=== PATIENT | female | born 1960 | race Caucasian/White ===

== ENCOUNTER 2019-11-17 15:40 | Inpatient (IN) | payer OTHER, BC, SELFPAY ==
[2019-11-17] VITALS (15 sets, daily range): BP systolic 100–125; BP diastolic 68–84; PULSE 20–100; RESP 12–93; TEMP 37–37.2; O2SAT 95–99; BMI 26.9
--- NOTE | ~2019-11-17 | US_ITS ---
EXAMINATION: US venous doppler [facility] DATE: 11/22/2019 14:47 INDICATION: Lower limb swelling. TECHNIQUE: Grayscale ultrasound images without and with compression and Doppler ultrasound images of the bilateral lower extremity veins were obtained. COMPARISON: None. FINDINGS: The visualized portions of right common femoral vein, profunda (deep) femoral vein, femoral vein, pop liteal vein, posterior tibial veins, peroneal veins, gastrocnemius vein, lesser saphenous vein and gr eater saphenous vein outflow are patent. The visualized portions of left common femoral vein, profunda femoral vein, femoral vein, popliteal v ein, posterior tibial veins, peroneal veins, gastrocnemius vein, lesser saphenous vein and greater sa phenous vein outflow are patent. IMPRESSION: 1. No deep venous thrombosis in either lower limb. Reviewed, dictated and finalized at location A.
--- NOTE | ~2019-11-17 | XR_ITS ---
EXAMINATION: XR chest 1V portable 11/17/2019 17:34 INDICATION: Weakness, fever and upper back pain PROCEDURE: AP portable chest COMPARISON: 06/24/2011 FINDINGS: The lungs are clear. The cardiomediastinal silhouette is within normal limits. There are no pleural effusions. There is no pneumothorax suspected. There are partially calcified breast impl ants. IMPRESSION: 1: NO ACUTE CARDIOPULMONARY DISEASE. Reviewed, dictated and finalized at location A.
--- NOTE | ~2019-11-17 | US_ITS ---
EXAMINATION: US renal BI DATE: 11/19/2019 09:43 INDICATION: Acute kidney injury. TECHNIQUE: Multiple ultrasound grayscale images of the kidneys were obtained. COMPARISON: Chest CT 06/24/2011 FINDINGS: The right kidney measures 11.9 x 6.2 x 5.7 cm. The left kidney measures 11.9 x 4.7 x 5.9 cm. The kidn eys demonstrate normal parenchymal echogenicity. There is no hydronephrosis. The bladder is normal. IMPRESSION: 1. Normal kidneys. No hydronephrosis. Reviewed, dictated and finalized at location A.
[2019-11-17 16:22] LABS: Hematocrit 34.4 % (37.0-47.0); Hemoglobin 11.8 g/dL (12.0-15.0); Mean Corpuscular HGB Conc 34.3 g/dl (32-36); Mean Corpuscular Hemoglobin 31.4 pg (26-34); Mean Corpuscular Volume 91.5 fl (80-100); Mean Platelet Volume 10.6 fl (7.4-10.4); Platelet Count Result 256 k/mm3 (150-375); Red Blood Count 3.76 M/mm3 (4.2-5.4); White Blood Count 17.5 K/mm3 (4.5-10.0)
[2019-11-17 16:28] LABS: Band Neutrophils Percent 1 % (0-6); Lymphocytes Absolute Manual 0.87 K/mm3 (1.1-4.5); Monocytes Absolute Manual 0.87 K/mm3 (0.1-0.90); Monocytes Percent Manual 5 % (3-9); Neutrophils Absolute Manual 15.75 K/mm3 (1.7-7.2); Neutrophils Percent Manual 89 % (46-73); Platelet Estimate Adequate (Adequate); Total Cells Counted 100
[2019-11-17 16:33] LABS: Blood Urea Nitrogen 16 mg/dL (7-17); Calcium 8.1 mg/dL (8.4-10.2); Carbon Dioxide 24 mmol/L (22-30); Chloride 92 mmol/L (98-107); Estimated CRCL calculation 34 ml/min; Estimated Glomerular Filt Rate 36; Glucose 161 mg/dL (65-105); Potassium 4.1 mmol/L (3.4-5.0); Sodium 124 mmol/L (137-145)
[2019-11-17] MEDS: SODIUM CHLORIDE 0.9% IV 1,000 ML 999 ML IV CONT (16:54)
[2019-11-17] MEDS: MECLIZINE HCL 25 MG TABLET PO (17:09)
[2019-11-17 17:50] LABS: Add Urine Microscopic? YES; Appearance Urine Cloudy (Clear); Bacteria Urine Trace /hpf; Bilirubin Urine Negative (Negative); Blood Urine 2+ (Negative); Color Urine Yellow (Yellow); Glucose Urine UA Negative (Negative); Ketones Urine Negative (Negative); Leukocyte Esterase Ur 2+ LEU/UL (Negative); Mucus Urine Rare /lpf; Nitrate Urine Negative (Negative); Protein Urine 2+ mg/dL (Negative); Squamous Epithelial Cell Urine Occasional /hpf (Few); Urobilinogen Urine Negative mg/dL (<2.0); WBC Urine 31-50 /hpf
--- NOTE | 2019-11-17 18:42 | ED.GENADULT ---
HPI - General Adult General Chief complaint: Abdominal Pain Stated complaint: DON'T FEEL WELL Time Seen by Provider: 11/17/19 15:52 History of Present Illness HPI narrative: Patient is a 59-year-old female who presents ER with feeling weak. Concerned she has UTI or kidney infection. Reports dysuria began a couple days ago and fever is also started. She has been on Macrobid for 1 day. She reports earlier in the week when she started feeling fatigued her PCP swabbed her for COVID and the results are still pending. She has not had any runny nose/sore throat/productive cough. She has been without body aches. She did not start having what she felt was an elevated temperature until today. She reports she is been having some mild left-sided back pain. No alleviating factors. Related Data Home Medications Medication Instructions Recorded Confirmed nitrofurantoin monohyd/m-cryst 11/17/19 Allergies Allergy/AdvReac Type Severity Reaction Status Date / Time Sulfa (Sulfonamide Allergy Unknown Unknown Verified 09/23/17 11:04 Antibiotics) Review of Systems Review of Systems: All systems reviewed & are unremarkable except as noted in HPI and below Constitutional: Constitutional: Denies chills, Reports fatigue, Reports fever(s) and Reports weakness ENT: Denies nasal congestion and Denies sore throat Cardiovascular: Cardiovascular: Denies chest pain and Denies radiating jaw, neck or arm pain Respiratory: Respiratory: Denies cough, Denies dyspnea and Denies wheezing Gastrointestinal: Gastrointestinal: Denies abdominal pain, Denies nausea and Denies vomiting Genitourinary: Genitourinary: Reports nocturia, Reports dysuria and Reports flank pain PMFSH Past Medical History Medical History (Updated 11/17/19 @ 19:15 by Livan Emerson MD) Anxiety Healthy female adult Surgical History Surgical History (Updated 11/17/19 @ 19:02 by Livan Emerson MD) H/O breast augmentation Family History Family History (Updated 12/09/17 @ 11:35 by DOCTOR UNKNOWN) Mother Family history of schizophrenia Family history of dementia Father Family history of Parkinson's disease Other Diabetes mellitus Family history of malignant neoplasm Social History Social History Smoking status: Former smoker Second hand tobacco smoke exposure: No Smoking end date: 05/10/13 Alcohol intake: current Gender identity (if verbalized by the patient): Male Exam Narrative: Exam Narrative: GENERAL: ill-appearing, well-nourished, and in no acute distress. HEAD: Normocephalic, atraumatic. ENT: Mucous membranes moist. CHEST: Clear to auscultation. No respiratory distress. HEART: Regular rate and rhythm. Normal peripheral pulses. ABDOMEN: Soft, nontender, nondistended. No reproducible CVA tenderness EXTREMITIES: Normal range of motion. No edema. SKIN: Warm, dry, no rash. NEURO: Alert and oriented x3. PSYCH: Normal mood and affect. Course Course Emergency Course: Admit to hospitalist service for hyponatremia and UTI. Vital Signs Vital signs: Vital Signs Temperature 98.6 F 11/17/19 15:53 Pulse Rate 100 11/17/19 15:53 Respiratory Rate 12 11/17/19 15:53 Blood Pressure 120/78 11/17/19 15:53 Pulse Oximetry 98 11/17/19 15:53 Temperature 98.6 F 11/17/19 15:53 Pulse Rate 83 11/17/19 18:17 Respiratory Rate 18 11/17/19 18:17 Blood Pressure 100/84 11/17/19 18:17 Pulse Oximetry 95 11/17/19 18:17 Medical Decision Making Vital Signs Vital Signs: Vital Signs Temperature 98.6 F 11/17/19 15:53 Pulse Rate 100 11/17/19 15:53 Respiratory Rate 12 11/17/19 15:53 Blood Pressure 120/78 11/17/19 15:53 Pulse Oximetry 98 11/17/19 15:53 Temperature 98.6 F 11/17/19 15:53 Pulse Rate 83 11/17/19 18:17 Respiratory Rate 18 11/17/19 18:17 Blood Pressure 100/84 11/17/19 18:17 Pulse Oximetry 95 11/17/19 18:17 Lab Data Result diagrams: 11/17/19 16:15
--- NOTE | 2019-11-17 20:40 | ADMGEN ---
This patient, Shagufta Farias, was admitted to [facility] Room 330-01. Patient/family oriented to hospital policies and general routines including ID bracelet, bed and alarms, visiting hours, pain management, procedures, bathroom and other care routines, personal items, smoking policy, room service/diet, and visiting hours. Valuables list has been completed. Information on how to activate the Rapid Response Team has been discussed. Patient/Family are encouraged to report perceived risks to care and to ask questions if they do not understand what they are told or what they should do.
[2019-11-17] MEDS: SODIUM CHLORIDE 0.9% IV 1,000 ML 125 ML (21:56)
--- NOTE | 2019-11-17 22:40 | PM.IMHP ---
H&P: HPI History of Present Illness Chief complaint: Fever, back pain Narrative: Date and time of patient contact: 11/17/2019 at 9:20 p.m. Shagufta Farias is a 59 year old female with a distant history of urethral stricture and urinary tract infections who presented to the ER fever and mid back pain. The patient reported that on Wednesday she had a fever of of 102?. She had decreased energy and fatigue. She called her primary care physician's office and was coded tested. However when she returned home on Wednesday evening she developed left flank pain similar to when she had a prior pyelonephritis approximately 20 years ago. The following days she had a temperature up to 104.7. She developed dysuria and foul-smelling urine on Wednesday. She did not notice that her urine was darker in color until she provided a sample in the ER. She denies any hematuria. She had 1 episode of vomiting and an incontinent diarrheal stool on Wednesday. She has had persistent fevers each day. She has had marked episodes of sweating and rigors. She has had decreased oral intake. She denies any headache or visual changes. She has not had any episodes of lightheadedness. She denies cough or congestion. She has not had any shortness of breath or chest pain. She called her primary care physician's office on Wednesday and got a prescription for nitrofurantoin. Despite starting the antibiotic therapy her symptoms have continued unabated. Review of Systems Review of Systems: Narrative: 12 systems were reviewed with pertinent positives and negatives per HPI. Except as documented in the HPI, all other systems were reviewed and are negative. [facility] Past Medical History Medical History (Updated 11/17/19 @ 22:50 by Delisa Cortez DO) Anxiety Insomnia Surgical History Surgical History (Updated 11/17/19 @ 22:47 by Delisa Cortez DO) H/O breast augmentation History of dilation of urethra Family History Family History Mother Dementia Schizophrenia Father Dementia Parkinsons disease Sibling Breast cancer Social History Social History (Updated 11/17/19 @ 22:55 by Delisa Cortez DO) Smoking packs per day: 1 Smoking cigarettes per day: 20.0 Years smoked: 35 Smoking pack-years: 35.00 Smoking status: Former smoker Tobacco type: e-cigarettes/vaping Second hand tobacco smoke exposure: No Smoking end date: 05/10/13 Additional smoking assessment comments: She has transition to E cigarettes over the last 5 years. Alcohol intake: current Drinks per week: 6 Alcohol use details: She drinks a 6 pack of beer a week. Substance use: never Living arrangements: with family Additional living arrangements comments: She lives with her of 30 years. She has 1 son and 1 stepson. She reports that her son is healthy. 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 Gender identity (if verbalized by the patient): Female Spiritual care concerns: No Meds Home Medications and Allergies Home Medications Medication Instructions Recorded Confirmed Type diphenhydramine-acetaminophen 1 tablet PO HS PRN 11/17/19 11/17/19 History [Tylenol PM Extra Strength] ibuprofen 800 mg PO Q6H PRN 11/17/19 11/17/19 History nitrofurantoin monohyd/m-cryst 100 mg PO BID 11/17/19 11/17/19 History zolpidem 10 mg PO HS 11/17/19 11/17/19 History Allergies Allergy/AdvReac Type Severity Reaction Status Date / Time Sulfa (Sulfonamide Allergy Unknown Unknown Verified 09/23/17 11:04 Antibiotics) Vital Signs Vital Signs - 24 hr 11/17/19 15:53 11/17/19 16:49 11/17/19 17:00 Temperature 98.6 F Pulse Rate 100 86 85 Respiratory Rate 12 17 19 Blood Pressure 120/78 Pulse Oximetry 98 96 95 11/17/19 17:15 11/17/19 17:16 11/17/19 17:30 Temperature Pulse Rate 82 86 77
[2019-11-17 22:57] LABS: Blood Urea Nitrogen 17 mg/dL (7-17); Calcium 7.5 mg/dL (8.4-10.2); Carbon Dioxide 23 mmol/L (22-30); Chloride 97 mmol/L (98-107); Estimated CRCL calculation 36 ml/min; Estimated Glomerular Filt Rate 38; Glucose 178 mg/dL (65-105); Potassium 3.6 mmol/L (3.4-5.0); Sodium 128 mmol/L (137-145)
[2019-11-17] MEDS: ZOLPIDEM TARTRATE 5 MG TABLET 10 MG PO (23:15)
[2019-11-18] VITALS (11 sets, daily range): BP systolic 94–133; BP diastolic 51–75; PULSE 99–121; RESP 16–20; TEMP 37.2–39.5; O2SAT 92–98
[2019-11-18] MEDS: SODIUM CHLORIDE 0.9% IV 1,000 ML 125 ML IV CONT ×2 (06:08→14:43)
[2019-11-18 06:48] LABS: Hematocrit 33.3 % (37.0-47.0); Mean Corpuscular Hemoglobin 30.7 pg (26-34); Mean Platelet Volume 10.9 fl (7.4-10.4); Platelet Count Result 208 k/mm3 (150-375); Red Blood Count 3.58 M/mm3 (4.2-5.4); Red Cell Distribution Width 13.1 % (11.5-14.5); White Blood Count 10.6 K/mm3 (4.5-10.0)
[2019-11-18 06:59] LABS: Blood Urea Nitrogen 16 mg/dL (7-17); Calcium 7.4 mg/dL (8.4-10.2); Carbon Dioxide 24 mmol/L (22-30); Chloride 98 mmol/L (98-107); Estimated CRCL calculation 32 ml/min; Estimated Glomerular Filt Rate 33; Glucose 109 mg/dL (65-105); Potassium 4.3 mmol/L (3.4-5.0); Sodium 129 mmol/L (137-145)
[2019-11-18] MEDS: ACETAMINOPHEN 325 MG TABLET 650 MG PO ×3 (08:36→20:53)
[2019-11-18] MEDS: ENOXAPARIN 40 MG/0.4 ML SYRINGE SUB-Q (08:37)
--- NOTE | 2019-11-18 13:23 | P.PNIM_ITS ---
Progress Note: A&P Assessment and Plan (1) Sepsis: Code(s): A41.9 - Sepsis, unspecified organism <Jessie BurrisSophia Marquez PA-C - Last Filed: 11/18/19 16:49> Status: Acute <Jessie Boydcyndi, PA-C - Last Filed: 11/18/19 16:49> Assessment and Plan: Meets sepsis criteria with tachycardia and fever. BP soft this morning at 94/57. Source of infection is pyelonephritis with secondary bacteremia. * Administer 500 ml fluid bolus * Continue maintenance IV fluids and antibiotics * Check lactic acid level * Await final blood culture report. Urine cultures pending. * Hold benadryl, norco, and morphine given soft pressures * Closely monitor BP and vital signs <Jessie Marquez PA-C - Last Filed: 11/18/19 16:49> (2) Bacteremia: Code(s): R78.81 - Bacteremia <Jessie DaytonSophia Marquez, PA-C - Last Filed: 11/18/19 16:49> Status: Acute <Jessie DaytonSophia Marquez, PA-C - Last Filed: 11/18/19 16:49> Assessment and Plan: Secondary to pyelonephritis. * Preliminary blood culture shows Gram-negative bacilli with susceptibility report pending. * Continue ceftriaxone * Add Zosyn while awaiting susceptibility <Jessie Marquez PA-C - Last Filed: 11/18/19 16:49> (3) Pyelonephritis: Code(s): N12 - Tubulo-interstitial nephritis, not specified as acute or chronic <Jessie Marquez PA-C - Last Filed: 11/18/19 16:49> Status: Acute <Jessie DaytonSophia Marquez, PA-C - Last Filed: 11/18/19 16:49> Assessment and Plan: Urinalysis suspicious for UTI. She has bilateral CVA tenderness. She is febrile with T-max 102.6? and shaking chills. She started Macrobid prescribed by PCP on 11/14 but did not have improvement. * Continue empiric Rocephin and Zosyn * Await urine cultures * Preliminary blood cultures revealed gram-negative bacilli. Will await further report. * Continue IV fluids * Continue Tylenol as needed for fever <Jessie Marquez PA-C - Last Filed: 11/18/19 16:49> (4) Acute hyponatremia: Code(s): E87.1 - Hypo-osmolality and hyponatremia <Jessie Marquez ERICKSON - Last Filed: 11/18/19 16:49> Status: Acute <Jessie Marquez PA-C - Last Filed: 11/18/19 16:49> Assessment and Plan: Likely due to hypovolemia and secondary losses. Levels are increasing at a steady rate. * Continue IV fluids. * Continue to closely monitor sodium. Will repeat this afternoon and again this evening. <Jessie Marquez PA-C - Last Filed: 11/18/19 16:49> (5) Acute renal injury: Code(s): N17.9 - Acute kidney failure, unspecified <Jessie Marquez ERICKSON - Last Filed: 11/18/19 16:49> Status: Acute <Jessie Marquez PA-C - Last Filed: 11/18/19 16:49> Assessment and Plan: Likely due to infectious process and dehydration. Baseline creatinine is unclear. * Continue IV fluids * Renally dose medications and avoid nephrotoxic agents * Continue to monitor renal function closely. <Jessie Marquez ERICKSON - Last Filed: 11/18/19 16:49> Subjective Date/time seen: 11/18/19 13:23 <Jessie Boydcyndi ERICKSON - Last Filed: 11/18/19 16:49> Interval history: Date of service: 11/18/2019 She has fever and shaking chills. 8/10 back pain especially on right side at CVA. She denies flank pain or abdominal pain. She does not have dysuria or hematuria but endorses dark urine and urgency. She denies nausea or vomiting. She has a headache. No abdominal pain or cramping. She has had poor appetite. She denies dizzines or lightheadedness but
--- NOTE | 2019-11-18 13:23 | PM.IMPN ---
Progress Note: A&P Assessment and Plan (1) Sepsis: Code(s): A41.9 - Sepsis, unspecified organism <Jessie DaytonSophia Marquez PA-C - Last Filed: 11/18/19 16:49> Status: Acute <Jessie Solis Jimmy PA-C - Last Filed: 11/18/19 16:49> Assessment and Plan: Meets sepsis criteria with tachycardia and fever. BP soft this morning at 94/57. Source of infection is pyelonephritis with secondary bacteremia. Administer 500 ml fluid bolus Continue maintenance IV fluids and antibiotics Check lactic acid level Await final blood culture report. Urine cultures pending. Hold benadryl, norco, and morphine given soft pressures Closely monitor BP and vital signs <Jessie Marquez PA-C - Last Filed: 11/18/19 16:49> (2) Bacteremia: Code(s): R78.81 - Bacteremia <Jessie Marquez PA-C - Last Filed: 11/18/19 16:49> Status: Acute <Jessie DaytonSophia Marquez, PA-C - Last Filed: 11/18/19 16:49> Assessment and Plan: Secondary to pyelonephritis. Preliminary blood culture shows Gram-negative bacilli with susceptibility report pending. Continue ceftriaxone Add Zosyn while awaiting susceptibility <Jessie Marquez PA-C - Last Filed: 11/18/19 16:49> (3) Pyelonephritis: Code(s): N12 - Tubulo-interstitial nephritis, not specified as acute or chronic <Jessie Marquez PA-C - Last Filed: 11/18/19 16:49> Status: Acute <Jessie DaytonSophia Marquez, PA-C - Last Filed: 11/18/19 16:49> Assessment and Plan: Urinalysis suspicious for UTI. She has bilateral CVA tenderness. She is febrile with T-max 102.6? and shaking chills. She started Macrobid prescribed by PCP on 11/14 but did not have improvement. Continue empiric Rocephin and Zosyn Await urine cultures Preliminary blood cultures revealed gram-negative bacilli. Will await further report. Continue IV fluids Continue Tylenol as needed for fever <Jessie Marquez PA-C - Last Filed: 11/18/19 16:49> (4) Acute hyponatremia: Code(s): E87.1 - Hypo-osmolality and hyponatremia <Jessie Marquez PA-C - Last Filed: 11/18/19 16:49> Status: Acute <Jessie DaytonSophia Marquez PA-C - Last Filed: 11/18/19 16:49> Assessment and Plan: Likely due to hypovolemia and secondary losses. Levels are increasing at a steady rate. Continue IV fluids. Continue to closely monitor sodium. Will repeat this afternoon and again this evening. <Jessie Marquez PA-C - Last Filed: 11/18/19 16:49> (5) Acute renal injury: Code(s): N17.9 - Acute kidney failure, unspecified <Jessie Marquez PA-C - Last Filed: 11/18/19 16:49> Status: Acute <Jessie Marquez PA-C - Last Filed: 11/18/19 16:49> Assessment and Plan: Likely due to infectious process and dehydration. Baseline creatinine is unclear. Continue IV fluids Renally dose medications and avoid nephrotoxic agents Continue to monitor renal function closely. <Jessie Marquez PA-C - Last Filed: 11/18/19 16:49> Subjective Date/time seen: 11/18/19 13:23 <Jsesie Marquez PA-C - Last Filed: 11/18/19 16:49> Interval history: Date of service: 11/18/2019 She has fever and shaking chills. 8/10 back pain especially on right side at CVA. She denies flank pain or abdominal pain. She does not have dysuria or hematuria but endorses dark urine and urgency. She denies nausea or vomiting. She has a headache. No abdominal pain or cramping. She has had poor appetite. She denies dizzines or lightheadedness but says she feels weak. She denies cough, shortness of breath, or chest pain. <Jessie Marquez PA-C - Last Filed: 11/18/19 16:49> Review of Systems Review of Systems: Narrative: A 12 point review of systems was reviewed with pertinent positives and negatives as per HPI. <ERICKSON Blakely Last Filed: 11/18/19 16:49> Exam Narrative: Exam Narrative: Ms. Farias is examined
[2019-11-18 13:39] LABS: SARS-CoV-2 RNA PCR Negative
[2019-11-18 15:52] LABS: Sodium 129 mmol/L (137-145)
[2019-11-18 15:55] LABS: Lactic Acid 0.7 mmol/L (0.7-2.1)
[2019-11-18] MEDS: SODIUM CHLORIDE 0.9% IV 500 ML IV CONT (16:51)
[2019-11-18] MEDS: ZOLPIDEM TARTRATE 5 MG TABLET 10 MG PO (20:52)
[2019-11-18] MEDS: SODIUM CHLORIDE 0.9% IV 1,000 ML 150 ML IV CONT (20:55)
[2019-11-18 20:57] LABS: Sodium 131 mmol/L (137-145)
[2019-11-19] VITALS (12 sets, daily range): BP systolic 106–152; BP diastolic 65–88; PULSE 91–115; RESP 16–20; TEMP 36.7–38.6; O2SAT 91–97
[2019-11-19] MEDS: ACETAMINOPHEN 325 MG TABLET 650 MG PO ×5 (02:28→20:05)
[2019-11-19] MEDS: SODIUM CHLORIDE 0.9% IV 1,000 ML 150 ML IV CONT ×2 (03:36→17:20)
[2019-11-19 06:33] LABS: Basophils Percent Auto 0.5 % (0.2-1.2); Eosinophils Percent Auto 0.4 % (0-4.4); Hematocrit 30.7 % (37.0-47.0); Hemoglobin 10.1 g/dL (12.0-15.0); Immature Granulocyte Absolute 0.08 K/mm3 (0.00-0.031); Immature Granulocyte Percent A 1.1 % (0-0.5); Lymphocytes Absolute Auto 0.69 K/mm3 (0.9-3.2); Lymphocytes Percent Auto 9.1 % (18.3-44.2); Mean Corpuscular HGB Conc 32.9 g/dl (32-36); Mean Corpuscular Hemoglobin 30.5 pg (26-34); Mean Corpuscular Volume 92.7 fl (80-100); Monocytes Absolute Auto 0.8 K/mm3 (0.1-0.6); Monocytes Percent Auto 10.4 % (2.6-8.5); Neutrophils Percent Auto 78.5 % (45.5-73.1); Platelet Count Result 220 k/mm3 (150-375); Red Blood Count 3.31 M/mm3 (4.2-5.4); Red Cell Distribution Width 13.2 % (11.5-14.5); White Blood Count 7.6 K/mm3 (4.5-10.0)
[2019-11-19 06:51] LABS: Blood Urea Nitrogen 13 mg/dL (7-17); Carbon Dioxide 22 mmol/L (22-30); Chloride 102 mmol/L (98-107); Estimated CRCL calculation 34 ml/min; Estimated Glomerular Filt Rate 36; Glucose 94 mg/dL (65-105); Potassium 3.8 mmol/L (3.4-5.0); Sodium 131 mmol/L (137-145)
[2019-11-19] MEDS: ENOXAPARIN 40 MG/0.4 ML SYRINGE SUB-Q (08:37)
--- NOTE | 2019-11-19 15:25 | PM.IMPN ---
Progress Note: A&P Assessment and Plan (1) Sepsis: Qualifiers: Sepsis type: Escherichia coli Sepsis acute organ dysfunction status: unspecified Qualified Code(s): A41.51 - Sepsis due to Escherichia coli [E. coli] Code(s): A41.9 - Sepsis, unspecified organism Status: Acute Assessment and Plan: Meets sepsis criteria with tachycardia and fever. BP was a little soft, however this is improving. Source of infection is pyelonephritis with secondary bacteremia. Lactic acid is within normal limits. She was given 500 ml fluid bolus on 11/17 Continue maintenance IV fluids and antibiotics Urine and blood cultures positive for E coli. Hold benadryl, norco, and morphine given soft pressures Closely monitor BP and vital signs (2) Bacteremia: Code(s): R78.81 - Bacteremia Status: Acute Assessment and Plan: Secondary to pyelonephritis. Preliminary blood culture shows E coli with susceptibility report pending Continue ceftriaxone and Zosyn while awaiting susceptibility (3) Pyelonephritis: Code(s): N12 - Tubulo-interstitial nephritis, not specified as acute or chronic Status: Acute Assessment and Plan: She had bilateral CVA tenderness. She is febrile with T-max 103.1? and rigors. She started Macrobid prescribed by PCP on 11/14 but did not have improvement. Fever has been improved today. Her CVA tenderness has resolved. Continue empiric Rocephin and Zosyn. Plan to transition to single agent upon review of blood culture susceptibility. Final urine cultures demonstrate greater than 100,000 CFU E coli with susceptibility to Rocephin and Zosyn. Preliminary blood cultures revealed E coli consistent with urine culture. Susceptibility report is pending. Continue IV fluids Continue Tylenol as needed for fever (4) Acute hyponatremia: Code(s): E87.1 - Hypo-osmolality and hyponatremia Status: Acute Assessment and Plan: Likely due to hypovolemia and secondary losses. Levels are increasing at a steady rate. Stable at 131 today. Continue IV fluids. Continue to closely monitor sodium. (5) Acute renal injury: Code(s): N17.9 - Acute kidney failure, unspecified Status: Acute Assessment and Plan: Likely due to infectious process and dehydration. Baseline creatinine is unclear. Creatinine is remaining stable, however still elevated. Continue IV fluids Renally dose medications and avoid nephrotoxic agents Continue to monitor renal function closely. Suspect she will demonstrate improvement with resolution of infection. Renal ultrasound shows normal kidneys with no hydronephrosis. Subjective Date/time seen: 11/19/19 15:25 Interval history: Date of service: 11/19/2019 She reports she is feeling better than yesterday. She continues to endorse fever and chills, however she notes this seems to have improved. Her back and flank pain is resolved today. She denies abdominal pain. She feels extremely fatigued, and a little bit lightheaded. She is urinating frequently but denies dysuria or hematuria. She had a loose bowel movement today. Her appetite has been fair. Occasional nonproductive cough. No shortness of breath or chest pain. Review of Systems Review of Systems: Narrative: A 12 point review of systems was reviewed with pertinent positives and negatives as per HPI. Exam Narrative: Exam Narrative: Ms. Farias is examined today in the presence of her . She is a well nourished 59-year-old female who is lying supine in bed. She appears uncomfortable but is in no acute respiratory distress. HR 102, BP 138/88, RR 20, T 98.7?, 96% on room air Neuro: awake, alert and oriented x4, speech clear, no focal neuro deficits noted HEENMT: normocephalic, atraumatic, EOMI, sclerae anicteric, moist oral mucosa, normal oropharynx Neck: supple, no lymphadenopathy Respiratory: clear to auscultation bilaterall
[2019-11-19] MEDS: SACCHAROMYCES BOULARDII 250 MG CAPSULE PO (18:42)
[2019-11-19] MEDS: ZOLPIDEM TARTRATE 5 MG TABLET 10 MG PO (20:00)
[2019-11-20] VITALS (8 sets, daily range): BP systolic 137–146; BP diastolic 73–89; PULSE 83–109; RESP 18–20; TEMP 36.7–38.2; O2SAT 91–98
[2019-11-20] MEDS: ACETAMINOPHEN 325 MG TABLET 650 MG PO ×4 (02:12→21:31)
[2019-11-20] MEDS: SODIUM CHLORIDE 0.9% IV 1,000 ML 150 ML IV CONT (05:45)
[2019-11-20 06:30] LABS: Blood Urea Nitrogen 10 mg/dL (7-17); Calcium 7.5 mg/dL (8.4-10.2); Carbon Dioxide 20 mmol/L (22-30); Chloride 103 mmol/L (98-107); Estimated CRCL calculation 39 ml/min; Estimated Glomerular Filt Rate 42; Glucose 104 mg/dL (65-105); Potassium 3.6 mmol/L (3.4-5.0); Sodium 130 mmol/L (137-145)
[2019-11-20] MEDS: ENOXAPARIN 40 MG/0.4 ML SYRINGE SUB-Q (07:58)
[2019-11-20] MEDS: SACCHAROMYCES BOULARDII 250 MG CAPSULE PO ×2 (07:58→17:32)
--- NOTE | 2019-11-20 10:50 | P.PNIM_ITS ---
Progress Note: A&P Assessment and Plan (1) Sepsis: Qualifiers: Sepsis type: Escherichia coli Sepsis acute organ dysfunction status: unspecified Qualified Code(s): A41.51 - Sepsis due to Escherichia coli [E. col i] Code(s): A41.9 - Sepsis, unspecified organism Status: Acute Assessment and Plan: Met SIRS criteria with tachycardia and fever. BP was a little soft, however this is improving. Source of infection is pyelonephritis with secondary bacteremia. Lactic acid is within normal limits. * She was given 500 ml fluid bolus on 11/17 * Continue maintenance IV fluids and antibiotics * Urine and blood cultures positive for E coli. * Closely monitor BP and vital signs (2) Bacteremia: Code(s): R78.81 - Bacteremia Status: Acute Assessment and Plan: Secondary to pyelonephritis. * Preliminary blood culture shows E coli susceptible to ceftriaxone * Continue ceftriaxone, initiated on 11/16 * Discontinue broad spectrum Zosyn, given 11/17-11/19. (3) Pyelonephritis: Code(s): N12 - Tubulo-interstitial nephritis, not specified as acute or chronic Status: Acute Assessment and Plan: She had bilateral CVA tenderness. She is febrile with T-max 103.1? and rigors. She started Macrobid prescribed by PCP on 11/14 with no resolution. Fever has been improved but she had low fever 100.8 early am. Her CVA tenderness has resolved. * Final urine cultures demonstrate greater than 100,000 CFU E coli with susceptibility to ceftriaxone * Preliminary blood cultures revealed E coli consistent with urine culture, also susceptible to ceftriaxone. * Continue IV fluids, will decrease to 100 ml/hr * Continue Tylenol as needed for fever (4) Acute hyponatremia: Code(s): E87.1 - Hypo-osmolality and hyponatremia Status: Acute Assessment and Plan: Likely due to hypovolemia and secondary losses. Levels are increasing at a stea dy rate. Stable at 130 today. * Continue IV fluids. * Continue to closely monitor sodium. (5) Acute renal injury: Code(s): N17.9 - Acute kidney failure, unspecified Status: Acute Assessment and Plan: Likely due to infectious process and dehydration. Baseline creatinine is unclear. Creatinine improved to 1.3 today. * Continue IV fluids * Renally dose medications and avoid nephrotoxic agents * Continue to monitor renal function closely. Suspect she will demonstrate improvement with resolution of infection. * Renal ultrasound shows normal kidneys with no hydronephrosis. (6) Diarrhea: Code(s): R19.7 - Diarrhea, unspecified Status: Acute Assessment and Plan: Complained of loose stool on 11/19/19. Today, she reports frequent watery, malodorous stools. No associated abdominal cramping or pain. No N/V. * Continue probiotic * Check stool culture and C. diff toxin Subjective Date/time seen: 11/20/19 10:50 Interval history: Date of service: 11/20/2019 Her headache has improved today. She had an episode of chills last night but denies any subjective fever or chills today. She complains of feeling very weak and lacking any energy. She is able to ambulate independently without difficulty. She has not had any nausea or vomiting. She complained of loose stool yesterday but today tells me her stool is watery and malodorous and she is having frequent episodes of diarrhea. She has no abdominal pain, bloating, or cramping. Still denies dysuria or hematuria. Back pain has resolved. No shortness of breath or chest pain.
--- NOTE | 2019-11-20 10:50 | PM.IMPN ---
Progress Note: A&P Assessment and Plan (1) Sepsis: Qualifiers: Sepsis type: Escherichia coli Sepsis acute organ dysfunction status: unspecified Qualified Code(s): A41.51 - Sepsis due to Escherichia coli [E. coli] Code(s): A41.9 - Sepsis, unspecified organism Status: Acute Assessment and Plan: Met SIRS criteria with tachycardia and fever. BP was a little soft, however this is improving. Source of infection is pyelonephritis with secondary bacteremia. Lactic acid is within normal limits. She was given 500 ml fluid bolus on 11/17 Continue maintenance IV fluids and antibiotics Urine and blood cultures positive for E coli. Closely monitor BP and vital signs (2) Bacteremia: Code(s): R78.81 - Bacteremia Status: Acute Assessment and Plan: Secondary to pyelonephritis. Preliminary blood culture shows E coli susceptible to ceftriaxone Continue ceftriaxone, initiated on 11/16 Discontinue broad spectrum Zosyn, given 11/17-11/19. (3) Pyelonephritis: Code(s): N12 - Tubulo-interstitial nephritis, not specified as acute or chronic Status: Acute Assessment and Plan: She had bilateral CVA tenderness. She is febrile with T-max 103.1? and rigors. She started Macrobid prescribed by PCP on 11/14 with no resolution. Fever has been improved but she had low fever 100.8 early am. Her CVA tenderness has resolved. Final urine cultures demonstrate greater than 100,000 CFU E coli with susceptibility to ceftriaxone Preliminary blood cultures revealed E coli consistent with urine culture, also susceptible to ceftriaxone. Continue IV fluids, will decrease to 100 ml/hr Continue Tylenol as needed for fever (4) Acute hyponatremia: Code(s): E87.1 - Hypo-osmolality and hyponatremia Status: Acute Assessment and Plan: Likely due to hypovolemia and secondary losses. Levels are increasing at a steady rate. Stable at 130 today. Continue IV fluids. Continue to closely monitor sodium. (5) Acute renal injury: Code(s): N17.9 - Acute kidney failure, unspecified Status: Acute Assessment and Plan: Likely due to infectious process and dehydration. Baseline creatinine is unclear. Creatinine improved to 1.3 today. Continue IV fluids Renally dose medications and avoid nephrotoxic agents Continue to monitor renal function closely. Suspect she will demonstrate improvement with resolution of infection. Renal ultrasound shows normal kidneys with no hydronephrosis. (6) Diarrhea: Code(s): R19.7 - Diarrhea, unspecified Status: Acute Assessment and Plan: Complained of loose stool on 11/19/19. Today, she reports frequent watery, malodorous stools. No associated abdominal cramping or pain. No N/V. Continue probiotic Check stool culture and C. diff toxin Subjective Date/time seen: 11/20/19 10:50 Interval history: Date of service: 11/20/2019 Her headache has improved today. She had an episode of chills last night but denies any subjective fever or chills today. She complains of feeling very weak and lacking any energy. She is able to ambulate independently without difficulty. She has not had any nausea or vomiting. She complained of loose stool yesterday but today tells me her stool is watery and malodorous and she is having frequent episodes of diarrhea. She has no abdominal pain, bloating, or cramping. Still denies dysuria or hematuria. Back pain has resolved. No shortness of breath or chest pain. She has intermittent dry cough. Her appetite is still poor but she is eating her meals. Review of Systems Review of Systems: Narrative: A 12 point review of systems was reviewed with pertinent positives and negatives as per HPI. Exam Narrative: Exam Narrative: Ms. Farias is examined today in the presence of her sister. She is a well nourished 59-year-old female who is lying supine in bed. She appears co
[2019-11-20] MEDS: SODIUM CHLORIDE 0.9% IV 1,000 ML 100 ML IV CONT (17:24)
[2019-11-20] MEDS: ZOLPIDEM TARTRATE 5 MG TABLET 10 MG PO (21:32)
[2019-11-21] MEDS: SODIUM CHLORIDE 0.9% IV 1,000 ML 100 ML IV CONT (03:32)
[2019-11-21 06:00] VITALS: BP 154/83; PULSE 89; RESP 18; TEMP 38.1; O2SAT 95
[2019-11-21 06:22] LABS: Hematocrit 28.9 % (37.0-47.0); Hemoglobin 9.6 g/dL (12.0-15.0); Mean Corpuscular HGB Conc 33.2 g/dl (32-36); Mean Corpuscular Hemoglobin 30.2 pg (26-34); Mean Corpuscular Volume 90.9 fl (80-100); Mean Platelet Volume 10.8 fl (7.4-10.4); Platelet Count Result 349 k/mm3 (150-375); Red Blood Count 3.18 M/mm3 (4.2-5.4); Red Cell Distribution Width 13.8 % (11.5-14.5); White Blood Count 9.6 K/mm3 (4.5-10.0)
[2019-11-21 06:40] LABS: Blood Urea Nitrogen 8 mg/dL (7-17); Calcium 7.5 mg/dL (8.4-10.2); Carbon Dioxide 21 mmol/L (22-30); Chloride 105 mmol/L (98-107); Estimated CRCL calculation 46 ml/min; Estimated Glomerular Filt Rate 51; Glucose 110 mg/dL (65-105); Potassium 3.6 mmol/L (3.4-5.0); Sodium 133 mmol/L (137-145)
[2019-11-21 08:00] VITALS: TEMP 36.9
[2019-11-21] MEDS: ACETAMINOPHEN 325 MG TABLET 650 MG PO ×2 (08:24→14:29)
[2019-11-21] MEDS: ENOXAPARIN 40 MG/0.4 ML SYRINGE SUB-Q (08:40)
[2019-11-21] MEDS: SACCHAROMYCES BOULARDII 250 MG CAPSULE PO ×2 (08:40→17:53)
--- NOTE | 2019-11-21 12:58 | PM.IMPN ---
Progress Note: A&P Assessment and Plan (1) Sepsis: Qualifiers: Sepsis type: Escherichia coli Sepsis acute organ dysfunction status: unspecified Qualified Code(s): A41.51 - Sepsis due to Escherichia coli [E. coli] Code(s): A41.9 - Sepsis, unspecified organism Status: Acute Assessment and Plan: Met SIRS criteria with tachycardia and fever. She had soft BP initially which has improved. The source of infection is pyelonephritis complicated by urosepsis due to E. coli, present on blood and urine cultures. Lactic acid is within normal limits. Continue to treat with IV antibiotics. Continue to monitor. (2) Bacteremia: Code(s): R78.81 - Bacteremia Status: Acute Assessment and Plan: Secondary to pyelonephritis complicated by urosepsis. Final blood cultures reveal E coli susceptible to ceftriaxone. She was given broad spectrum zosyn 11/17-11/19. Ceftriaxone was resumed 11/20 after sensitivity results were available. Continue ceftriaxone which was initiated on 11/16. (3) Pyelonephritis: Code(s): N12 - Tubulo-interstitial nephritis, not specified as acute or chronic Status: Acute Assessment and Plan: She had bilateral CVA tenderness at [facility] with T-max 103.1? and rigors. She was prescribed Macrobid by PCP on 11/14 without improvement in her symptoms. Fever has been improved but she had low fever 100.6F at 6:00 AM. Her CVA tenderness has resolved. Final urine cultures demonstrate greater than 100,000 CFU E coli with susceptibility to ceftriaxone. Final blood cultures revealed E coli consistent with urine culture, also susceptible to ceftriaxone. Plan to discontinue IV fluids today as she is tolerating PO intake well and notes mild swelling in her feet. Continue Tylenol as needed for fever. (4) Acute hyponatremia: Code(s): E87.1 - Hypo-osmolality and hyponatremia Status: Acute Assessment and Plan: Likely due to hypovolemia and secondary losses. Levels are increasing at a steady rate. Stable is 133 today. Continue monitor sodium. (5) Acute renal injury: Code(s): N17.9 - Acute kidney failure, unspecified Status: Acute Assessment and Plan: Likely due to infectious process and dehydration. Baseline creatinine is unclear. Renal ultrasound demonstrated normal kidneys with no hydronephrosis. Creatinine improved to 1.1 today. She is tolerating PO intake well so I will discontinue IV fluids as she feels that her feet are becoming swollen. Renally dose medications and avoid nephrotoxic agents. Continue to monitor. (6) Diarrhea: Code(s): R19.7 - Diarrhea, unspecified Status: Acute Assessment and Plan: Complained of loose stool on 11/19/19. She reported incresed frequency of watery and malodorous stools without associated abdominal cramping or pain. C. diff testing was negative. Plan to continue probiotic. Additional stool cultures are pending. Await additional stool cultures. Subjective Date/time seen: 11/21/19 12:58 Interval history: Mrs. Farias is a 59 y.o. female who is seen and examined at bedside in follow-up for urosepsis. She did not sleep well overnight and states that she feels tired. She is eager to go home because she does not sleep well here. She reports a fever earlier today but denies subjective fever or chills at this time. She reports that she is having loose stools but this is not uncommon for her to have periodically. She reports 3-4 yesterday. She notes that overall, she feels better than she did at presentation. She reports slight flank discomfort which continues to improve. She notes poor appetite but is able to keep down food and ate doughnuts today. She denies nausea and vomiting. She has no urinary complaints today. She denies chest pain and dyspnea. She reports that her feet appear swollen. She denies calf pain. Review of Systems Review of Systems: All systems reviewed & ar
[2019-11-21 14:00] VITALS: BP 132/86; PULSE 84; RESP 16; TEMP 36.8; O2SAT 99
[2019-11-21] MEDS: ZOLPIDEM TARTRATE 5 MG TABLET 10 MG PO (20:22)
[2019-11-21 22:00] VITALS: BP 127/56; PULSE 92; RESP 18; TEMP 36.6; O2SAT 97
[2019-11-22 05:28] VITALS: BP 146/78; PULSE 83; RESP 18; TEMP 36.8; O2SAT 96
[2019-11-22 06:29] LABS: Basophils Percent Auto 0.4 % (0.2-1.2); Eosinophils Absolute Auto 0.1 K/mm3 (0-0.3); Hematocrit 25.8 % (37.0-47.0); Hemoglobin 8.7 g/dL (12.0-15.0); Immature Granulocyte Absolute 0.21 K/mm3 (0.00-0.031); Immature Granulocyte Percent A 2.3 % (0-0.5); Lymphocytes Absolute Auto 1.42 K/mm3 (0.9-3.2); Lymphocytes Percent Auto 15.4 % (18.3-44.2); Mean Corpuscular HGB Conc 33.7 g/dl (32-36); Mean Corpuscular Hemoglobin 30.3 pg (26-34); Mean Corpuscular Volume 89.9 fl (80-100); Mean Platelet Volume 10.5 fl (7.4-10.4); Monocytes Percent Auto 10.7 % (2.6-8.5); Neutrophils Absolute Auto 6.5 K/mm3 (1.3-6.7); Neutrophils Percent Auto 70.2 % (45.5-73.1); Platelet Count Result 393 k/mm3 (150-375); Red Blood Count 2.87 M/mm3 (4.2-5.4); Red Cell Distribution Width 13.5 % (11.5-14.5); White Blood Count 9.2 K/mm3 (4.5-10.0)
[2019-11-22 06:39] LABS: Blood Urea Nitrogen 6 mg/dL (7-17); Calcium 7.6 mg/dL (8.4-10.2); Carbon Dioxide 21 mmol/L (22-30); Chloride 104 mmol/L (98-107); Estimated CRCL calculation 55 ml/min; Estimated Glomerular Filt Rate > 60; Glucose 104 mg/dL (65-105); Potassium 3.5 mmol/L (3.4-5.0); Sodium 133 mmol/L (137-145)
[2019-11-22] MEDS: SACCHAROMYCES BOULARDII 250 MG CAPSULE PO (08:31)
[2019-11-22] MEDS: ENOXAPARIN 40 MG/0.4 ML SYRINGE SUB-Q (08:32)
--- NOTE | 2019-11-22 13:32 | PM.DS ---
DS: Admitting Diagnosis Admitting Diagnosis Admitting Diagnosis: Tubulo-interstitial nephritis, not specified as acute or chronic DS: Discharge Diagnosis Discharge Diagnosis (1) Sepsis: Qualifiers: Sepsis acute organ dysfunction status: unspecified Sepsis type: Escherichia coli Qualified Code(s): A41.51 - Sepsis due to Escherichia coli [E. coli] Code(s): A41.9 - Sepsis, unspecified organism Status: Acute (2) Bacteremia: Code(s): R78.81 - Bacteremia Status: Acute (3) Pyelonephritis: Code(s): N12 - Tubulo-interstitial nephritis, not specified as acute or chronic Status: Acute (4) Acute hyponatremia: Code(s): E87.1 - Hypo-osmolality and hyponatremia Status: Acute (5) Acute renal injury: Code(s): N17.9 - Acute kidney failure, unspecified Status: Resolved (6) Diarrhea: Code(s): R19.7 - Diarrhea, unspecified Status: Acute DS: Summary Hospital Course Reason for hospitalization: Abdominal pain Hospital Course: Mrs. Farias is a 59 y.o. female with PMH significant for prior urinary tract infections, anxiety, and insomnia who presented to the emergency department for the evaluation of weakness, abdominal pain, fatigue, fever of 104.7F, dysuria, foul smelling and dark urine, vomiting, diarrhea, and mild left-sided back pain. She was tested for COVID-19 by her PCP due to c/o rhinorrhea, sore throat, and productive cough and she was prescribed nitrofurantoin outpatient without improvement. Initial workup in the emergency department revealed WBC 17,500 with a neutrophil predominance, Hb 11.8, Hct 34.4, platelets 256, sodium 124, potassium 4.1, chloride 92, CO2 24, BUN 16, Cr 1.5, urine suspicious for UTI, and CXR without evidence of acute abnormality. She was treated with empiric ceftriaxone in the ED. She met SIRS criteria with suspected source pyelonephritis. Lactic acid was normal. Blood and urine cultures revealed gram-negative bacilli. IV zosyn was added for broader coverage. Final cultures revealed E. Coli sensitive to ceftriaxone so zosyn was discontinued. She had loose stools so she was tested for C. diff as well as E. coli shiga toxin, campylobacter, and salmonella/shigella which were negative. She was treated with a probiotic. She had BLACK initially which improved with IV fluids and treatment of her UTI. She complained of mild lower extremity swelling bilaterally so I ordered venous doppler which was negative. She was hyponatremic initially and this improved with IV fluid rehydration. She was feeling much better and requested to go home. She was discharged on PO cefdinir in stable condition on the afternoon of 11/22/19. She was advised to have labs repeated in 5 days. She understood the plan of care. Status at Discharge Functional status at discharge: independent ambulation Overall status at discharge: patient is back to baseline Time Spent with Patient Time attestation: Total time spent providing and/or coordinating discharge services:35 minutes Exam Narrative: Exam Narrative: Vitals at presentation: Temp Pulse Resp BP Pulse Ox 98.6 F 100 12 120/78 98 11/17/19 15:53 11/17/19 15:53 11/17/19 15:53 11/17/19 15:53 11/17/19 15:53 Vitals at discharge: Temp Pulse Resp BP Pulse Ox 99.3 F 77 18 152/99 H 96 11/22/19 14:00 11/22/19 14:00 11/22/19 14:00 11/22/19 14:00 11/22/19 14:00 General: Very pleasant 59 y.o. female sitting in the semi-castillo's position in bed in no acute distress. HEENT: Normocephalic and atraumatic. Sclerae anicteric. EOMI. Moist mucous membranes. Neck: Supple without lymphadenopathy or masses. Cardiac: Regular rate and rhythm. S1 and S2 normal. Lung
[2019-11-22 14:00] VITALS: BP 152/99; PULSE 77; RESP 18; TEMP 37.4; O2SAT 96
[2019-11-22] MEDS: diphenhydrAMINE HCl CAP 25 MG CAPSULE PO (14:13)
== END 2019-11-22 17:47 | disposition home or self-care (01) | DRG 872 ==
LOC: ANHED 19:17 → ANH3MEDSUR 19:47
PROVIDERS: Physician Assistant; Admitting Provider Internal Medicine; Emergency Provider Emergency Medicine; PCP Family Medicine Sports Medicine; Visit Provider Physician Assistant
DX: A41.51 Sepsis due to Escherichia coli [E. coli] (principal); N10 Acute pyelonephritis; E87.1 Hypo-osmolality and hyponatremia; N17.9 Acute kidney failure, unspecified; Z20.828 Contact with and (suspected) exposure to other viral communicable diseases; R19.7 Diarrhea, unspecified; F41.9 Anxiety disorder, unspecified
CPT/HCPCS: 36415; 71045; 76775; 80048; 81001; 83605; 83735; 84295; 85025; 85027; 87040; 87045; 87046; 87077; 87086; 87088; 87186; 87324; 87427; 87635; 93970; 96361; 96365; 96366; 96367; 96372; 99285; A9270; C9803; G0378; J0696; J1650; J2543; J7030; J7040; U0003

== ENCOUNTER 2019-11-28 10:26 | Outpatient (CLI) | payer OTHER, BC, SELFPAY ==
[2019-11-28 10:42] LABS: Hematocrit 34.8 % (37.0-47.0); Hemoglobin 11.2 g/dL (12.0-15.0); Mean Corpuscular HGB Conc 32.2 g/dl (32-36); Mean Corpuscular Hemoglobin 30.8 pg (26-34); Mean Corpuscular Volume 95.6 fl (80-100); Platelet Count Result 889 k/mm3 (150-375); Red Blood Count 3.64 M/mm3 (4.2-5.4); Red Cell Distribution Width 13.6 % (11.5-14.5); White Blood Count 11.3 K/mm3 (4.5-10.0)
[2019-11-28 10:58] LABS: Blood Urea Nitrogen 15 mg/dL (7-17); Carbon Dioxide 26 mmol/L (22-30); Chloride 97 mmol/L (98-107); Estimated Glomerular Filt Rate 51; Glucose 99 mg/dL (65-105); Potassium 4.7 mmol/L (3.4-5.0); Sodium 133 mmol/L (137-145)
== END 2019-11-28 10:27 | disposition home or self-care (01) ==
LOC: ANHLAB 10:27
PROVIDERS: PCP Family Medicine Sports Medicine; Visit Provider Physician Assistant
DX: E87.1 Hypo-osmolality and hyponatremia (principal); N17.9 Acute kidney failure, unspecified; N12 Tubulo-interstitial nephritis, not specified as acute or chronic
CPT/HCPCS: 36415; 80048; 85027

== ENCOUNTER 2019-12-19 18:09 | Emergency (ER) | payer OTHER, SELFPAY ==
--- NOTE | ~2019-12-19 | CT_ITS ---
EXAMINATION: CT abdomen pelvis wo con EXAM DATE: 12/19/2019 19:46 INDICATION: Fever and back pain. TECHNIQUE: Spiral CT of the abdomen and pelvis was performed without contrast. Axial, coronal and s agittal images were reviewed. The dose-length product (DLP) for this examination was 430.26 mGy-cm. The exposure was tailored according to patient size (auto mA exposure control), and iterative recons truction (ASIR) was used as additional dose reduction technique. There is no prior study for compari son. FINDINGS: Bilateral patchy peripheral predominant groundglass opacities Appearance is typical of ear ly stage COVID 19-induced acute lung injury. Less likely acute possibilities include influenza, pulm onary edema or hemorrhage. Some chronic processes that can have this appearance include cryptogenic o rganizing pneumonia, desquamative interstitial pneumonia, nonspecific interstitial pneumonia, drug to xicity, connective tissue disease. Please clinically correlate and test as appropriate. There is left adrenal gland adenoma measuring 1.3 cm. The liver, spleen, adrenal glands and pancreas are otherwise unremarkable. Gallbladder is unremarkable. No biliary obstruction. There is no nephr olithiasis or hydronephrosis. The uterus is unremarkable. The bladder is unremarkable. There is no retroperitoneal or pelvic lymphadenopathy. There is mild to moderate scattered arteriosclerotic disease. The appendix is normal. The stomach and small bowel are unremarkable. There is mild to moderate scat tered colonic diverticulosis. There is no adjacent inflammatory change to suggest diverticulitis. N o free intraperitoneal gas. The heart is normal in size. There are no pericardial or pleural effus ions. There are no osteoblastic or osteolytic lesions identified. IMPRESSION: 1. Patchy bilateral airspace disease suspicious for COVID-19 pneumonia. Clinical correlation. 2. Left adrenal adenoma. 3. No acute intra-abdominal findings. Reviewed, dictated and finalized at location A. IMPRESSION: 1. Patchy bilateral airspace disease suspicious for COVID-19 pneumonia. Clinic al correlation. 2. Left adrenal adenoma. 3. No acute intra-abdominal findings.
[2019-12-19 18:14] VITALS: BP 136/82; PULSE 100; RESP 20; TEMP 38.5; O2SAT 98
--- NOTE | 2019-12-19 18:54 | ED.FEVER ---
HPI - Fever General Chief Complaint: Fever <ERICKSON Kline Last Filed: 12/19/19 21:54> Stated Complaint: fever, low back pain <ERICKSON Kline Last Filed: 12/19/19 21:54> Time Seen by Provider: 12/19/19 18:30 <ERICKSON Kline Last Filed: 12/19/19 21:54> Source: patient <ERICKSON Kline Last Filed: 12/19/19 21:54> Mode of arrival: ambulatory <ERICKSON Kline Last Filed: 12/19/19 21:54> Limitations: no limitations <ERICKSON Kline Last Filed: 12/19/19 21:54> History of Present Illness HPI Narrative: This is a 59-year-old female that presents to the emergency department for low back pain x4 days. Also reports mild dysuria and fevers. Reports a cough that is chronic for her. Denies congestion, shortness of breath, sore throat, abdominal pain, vomiting, hematuria. <ERICKSON Kline Last Filed: 12/19/19 21:54> Related Data Home Medications: Home Medications Medication Instructions Recorded Confirmed diphenhydramine-acetaminophen 1 tablet PO HS PRN 11/17/19 11/17/19 [Tylenol PM Extra Strength] ibuprofen 800 mg PO Q6H PRN 11/17/19 11/17/19 zolpidem 10 mg PO HS 11/17/19 11/17/19 <ERICKSON Kline Last Filed: 12/19/19 21:54> Allergies/Adverse Reactions: Allergies Allergy/AdvReac Type Severity Reaction Status Date / Time Sulfa (Sulfonamide Allergy Unknown Unknown Verified 12/19/19 18:17 Antibiotics) <ERICKSON Kline Last Filed: 12/19/19 21:54> Review of Systems Review of Systems: Narrative: CONSTITUTIONAL: Reports fever, chills RESPIRATORY: Denies cough or dyspnea. GASTROINTESTINAL: Denies abdominal pain, nausea, vomiting GENITOURINARY: Reports dysuria. Denies hematuria. MUSCULOSKELETAL: Reports back pain <Nereida Johnson PA-C - Last Filed: 12/19/19 21:54> All systems reviewed & are unremarkable except as noted in HPI and below <Nereida Johnson PA-C - Last Filed: 12/19/19 21:54> PMFSH Past Medical History Medical History: Medical History (Updated 12/19/19 @ 21:47 by Nereida Johnson PA-C) Anxiety Insomnia <Nereida Johnson PA-C - Last Filed: 12/19/19 21:54> Surgical History Surgical History: Surgical History (Updated 11/17/19 @ 22:47 by Delisa Cortez DO) H/O breast augmentation History of dilation of urethra <Nereida Johnson PA-C - Last Filed: 12/19/19 21:54> Social History Social History: Social History (Updated 11/17/19 @ 22:55 by Delisa Cortez DO) Smoking packs per day: 1 Smoking cigarettes per day: 20.0 Years smoked: 35 Smoking pack-years: 35.00 Smoking status: Former smoker Tobacco type: e-cigarettes/vaping Second hand tobacco smoke exposure: No Smoking end date: 05/10/13 Additional smoking assessment comments: She has transition to E cigarettes over the last 5 years. Alcohol intake: current Drinks per week: 6 Substance use: never Additional living arrangements comments: She lives with her of 30 years. She has 1 son and 1 stepson. She reports that her son is healthy. 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 Gender identity (if verbalized by the patient): Female Spiritual care concerns: No <Nereida Johnson PA-C - Last Filed: 12/19/19 21:54> Exam Narrative: Exam Narrative: GENERAL: Well-appearing, well-nourished, and in no acute distress. HEAD: Normocephalic, atraumatic. EYES: EOMI. CHEST: Clear to auscultation. No respiratory distress. No wheezes rales or rhonchi HEART: Regular rate and rhythm. No murmur heard. Normal peripheral pulses. ABDOMEN: Soft, nontender, nondistended, normal active bowel sounds. EXTREMITIES: Normal range of motion. No edema. SKIN: Warm, dry, no rash. NEURO: No focal deficits. Alert and oriented x3. PSYCH: Normal mood and affect <Nereida Johnson PA-C - Last Filed: 12/19/19 21:54> Course Vital Signs
[2019-12-19] MEDS: SODIUM CHLORIDE 0.9% IV 1,000 ML 999 ML IV CONT (18:55)
[2019-12-19 18:58] LABS: Basophils Percent Auto 0.3 % (0.2-1.2); Eosinophils Percent Auto 0.3 % (0-4.4); Hematocrit 32.3 % (37.0-47.0); Hemoglobin 10.9 g/dL (12.0-15.0); Immature Granulocyte Absolute 0.02 K/mm3 (0.00-0.031); Immature Granulocyte Percent A 0.6 % (0-0.5); Lymphocytes Absolute Auto 1.55 K/mm3 (0.9-3.2); Lymphocytes Percent Auto 42.7 % (18.3-44.2); Mean Corpuscular HGB Conc 33.7 g/dl (32-36); Mean Corpuscular Hemoglobin 30.1 pg (26-34); Mean Corpuscular Volume 89.2 fl (80-100); Mean Platelet Volume 10.1 fl (7.4-10.4); Monocytes Absolute Auto 0.3 K/mm3 (0.1-0.6); Monocytes Percent Auto 9.4 % (2.6-8.5); Neutrophils Absolute Auto 1.7 K/mm3 (1.3-6.7); Neutrophils Percent Auto 46.7 % (45.5-73.1); Platelet Count Result 196 k/mm3 (150-375); Red Blood Count 3.62 M/mm3 (4.2-5.4); Red Cell Distribution Width 12.8 % (11.5-14.5); White Blood Count 3.6 K/mm3 (4.5-10.0)
[2019-12-19 19:03] LABS: Add Urine Microscopic? YES; Appearance Urine Clear (Clear); Bilirubin Urine Negative (Negative); Blood Urine 1+ (Negative); Color Urine Straw (Yellow); Glucose Urine UA Negative (Negative); Ketones Urine Negative (Negative); Leukocyte Esterase Ur Trace LEU/UL (Negative); Mucus Urine Rare /lpf; Nitrate Urine Negative (Negative); Protein Urine Negative (Negative); RBC Urine 0-2 /hpf (0-2); Specific Grav Ur 1.009 (1.001-1.035); Squamous Epithelial Cell Urine Occasional /hpf (Few); Urobilinogen Urine Negative mg/dL (<2.0); WBC Urine 0-3 /hpf
[2019-12-19 19:11] LABS: Lactic Acid Reflex 0.6 mmol/L (0.7-2.1)
[2019-12-19 19:13] LABS: Alanine Aminotransferase 30 U/L (4-35); Alkaline Phosphatase 115 U/L (38-126); Anion Gap 11 mmol/L (8-16); Aspartate Amino Transferase 47 U/L (14-36); Bilirubin,Total 0.4 mg/dL (0.2-1.3); Blood Urea Nitrogen 13 mg/dL (7-17); CRP 2.4 mg/dL (<1.0); Calcium 7.9 mg/dL (8.4-10.2); Carbon Dioxide 21 mmol/L (22-30); Chloride 96 mmol/L (98-107); Estimated CRCL calculation 46 ml/min; Estimated Glomerular Filt Rate 51; Glucose 110 mg/dL (65-105); Potassium 3.9 mmol/L (3.4-5.0); Sodium 128 mmol/L (137-145)
[2019-12-19 19:16] LABS: INR 0.9; Prothrombin Time 11.8 Seconds (11.1-14.7)
[2019-12-19 19:17] LABS: Partial Thromboplastin Time 34.1 SECONDS (22.3-36.8)
[2019-12-19 19:48] VITALS: BP 125/89; PULSE 85; RESP 16; TEMP 37.8; O2SAT 99
[2019-12-19 21:39] VITALS: BP 129/78; PULSE 77; RESP 14; TEMP 37.4; O2SAT 98
[2019-12-19 22:22] VITALS: BP 145/69; PULSE 84; RESP 14; TEMP 37.7; O2SAT 100
[2019-12-20 14:11] LABS: SARS-CoV-2 RNA PCR Positive
== END 2019-12-19 22:24 | disposition home or self-care (01) ==
PROVIDERS: Emergency Medicine; Physician Assistant; Emergency Provider General Practice; PCP Family Medicine Sports Medicine
DX: U07.1 COVID-19 (principal); J12.89 Other viral pneumonia; G47.00 Insomnia, unspecified; F17.290 Nicotine dependence, other tobacco product, uncomplicated
CPT/HCPCS: 36415; 74176; 80053; 81001; 83605; 85025; 85610; 85730; 86140; 87040; 87635; 96365; 96367; 96375; 99284; C9803; J0131; J0456; J0696; J7030; U0003

== ENCOUNTER 2019-12-28 15:51 | Inpatient (IN) | payer OTHER, SELFPAY ==
[2019-12-28] VITALS (9 sets, daily range): BP systolic 93–118; BP diastolic 63–81; PULSE 91–103; RESP 18–31; TEMP 36.9–37; O2SAT 90–94; BMI 24.8
--- NOTE | ~2019-12-28 | XR_ITS ---
EXAMINATION: XR chest 1V portable DATE: 12/28/2019 16:43 INDICATION: Shortness of breath, fatigue. COVID 19 positive TECHNIQUE: frontal view of the chest was obtained. COMPARISON: Chest radiograph dated 11/17/2019 FINDINGS: Subtle groundglass and reticular opacities in the bilateral lower lung zones. No pleural effusion or pneumothorax. The cardiomediastinal silhouette is normal. Peripheral calcification at bilateral breas t implants. Sclerotic lesion projecting over the right humeral head which is without correlate on CT from 06/24/2011. IMPRESSION: 1. Subtle lung disease in the bilateral lower lung zones which could represent pneumonia, pulmonary e yeison or chronic interstitial lung disease. 2. New sclerotic lesion projecting over the right humeral head with differential including bone islan d, this body or sclerotic metastasis if there is history of prior malignancy. Correlate with planned chest CT and if suspicion for metastasis remains would consider bone scan for further evaluation. Reviewed, dictated and finalized at location A. IMPRESSION: 1. Subtle lung disease in the bilateral lower lung zones which could represent pneumonia, pulmonary edema or chronic interstitial lung disease. 2. New sclerotic lesion projecting over the right humeral head with differentia l including bone island, this body or sclerotic metastasis if there is history of prior malignancy. Correlate with planned chest CT and if suspicion for metas tasis remains would consider bone scan for further evaluation.
--- NOTE | ~2019-12-28 | CT_ITS ---
EXAMINATION: CTA chest PE protocol DATE: 12/28/2019 17:30 INDICATION: Shortness of breath. Elevated d-dimer. TECHNIQUE: Computed tomography (CT) pulmonary angiogram of the chest was performed with 100 mL Omnipa que-350 intravenous contrast. Additional 3D reconstructions utilizing coronal maximum intensity proje ction (MIP) were performed. Automated exposure control and iterative reconstruction technique were em ployed. The dose-length product was 276.15 mGy-cm. COMPARISON: Chest CT dated 06/24/[address] abdomen and pelvis dated 12/19/2019 FINDINGS: Excellent contrast opacification of the pulmonary arteries. There is mild streak artifact from dense contrast in the superior vena cava and right atrium. Minimal scattered respiratory motion artifact wh ich does not significantly limit evaluation. No pulmonary embolism. Mild to moderate emphysema. Inter nicolas progression of peripheral and lower lung predominant groundglass opacities throughout both lungs with the appearance, distribution and relatively rapid progression most consistent with COVID 19 pneu monia or less likely pulmonary edema. No pleural effusion. Heart size is normal. Thoracic aorta is no rmal in caliber with no dissection. No pathologically enlarged gastric lymphadenopathy. Peripherally calcified bilateral breast implants. New small sclerotic lesion at the right humeral head. No other s uspicious lytic or blastic bone lesions. Chronic mild T8 compression fracture. IMPRESSION: 1. No pulmonary embolism. 2. Interval progression of bilateral peripheral and lower lung predominant lung disease most likely C OVID 19 pneumonia or less likely pulmonary edema.. 3. New small sclerotic bone lesion at the right humeral head most likely representing a bone island. If patient has had prior history of malignancy would consider bone scan for further evaluation. Reviewed, dictated and finalized at location A. IMPRESSION: 1. No pulmonary embolism. 2. Interval progression of bilateral peripheral and lower lung predominant lung disease most likely COVID 19 pneumonia or less likely pulmonary edema.. 3. New small sclerotic bone lesion at the right humeral head most likely repres enting a bone island. If patient has had prior history of malignancy would cons ider bone scan for further evaluation.
--- NOTE | ~2019-12-28 | XR_ITS ---
EXAMINATION: XR chest 1V portable EXAM DATE: 01/01/2020 06:55 INDICATION: COVID 19. TECHNIQUE: Portable AP frontal chest x-ray was obtained. Comparison is made to prior examination from 12/28/2019. FINDINGS: There is moderate amount of patchy bibasilar acute airspace disease probably acute lung inj ury from COVID 19 given the history provided. Edema also possible. Progression in these findings comp ared to 12/27. Cardiomediastinal silhouette is normal. There is no pneumothorax suspected. Right humer al bone island. Breast implants with peripheral calcification, capsular retraction. IMPRESSION: Some progression in acute bilateral indistinct reticulation, bibasilar airspace disease. Reviewed, dictated and finalized at location B. IMPRESSION: Some progression in acute bilateral indistinct reticulation, bibas ilar airspace disease.
--- NOTE | 2019-12-28 16:13 | ED.SOB ---
HPI - SOB/Dyspnea General Chief Complaint: Shortness of Breath/Dyspnea Stated Complaint: covid symptoms Time Seen by Provider: 12/28/19 16:04 Source: patient Mode of arrival: ambulatory Limitations: no limitations History of Present Illness HPI Narrative: This patient is a 59 year old female who presents for evaluation of worsening shortness of breath with COVID 19. Elena reports 10 days ago she started feeling ill and she was found to have covid 19. She has been having sob with minimal activity for the past week. She also reports weakness with decreased appetite. She has been taking Augmentin and azithromycin for 10 days for pneumonia. She denies chest pain, or abdominal pain . She has been having diarrhea after starting antibiotics. She reports a temperature at home of 100.4, and she took tylenol before coming to ER. MD elicited complaint: shortness of breath Related Data Home Medications Medication Instructions Recorded Confirmed zolpidem 10 mg PO HS 11/17/19 12/28/19 Allergies Allergy/AdvReac Type Severity Reaction Status Date / Time Sulfa (Sulfonamide Allergy Unknown Unknown Verified 12/28/19 16:00 Antibiotics) Review of Systems Review of Systems: All systems reviewed & are unremarkable except as noted in HPI and below Constitutional: Constitutional: Reports fatigue and Reports fever(s) Cardiovascular: Cardiovascular: Denies chest pain Respiratory: Respiratory: Reports cough and Reports dyspnea Gastrointestinal: Gastrointestinal: Denies abdominal pain, Reports diarrhea, Reports nausea and Denies vomiting Neurologic: Reports weakness PMFSH Past Medical History Medical History (Updated 12/28/19 @ 22:11 by Candelaria Glez MD) Anxiety Insomnia Pyelonephritis with E coli bacteremia November 20, 2019 Surgical History Surgical History H/O breast augmentation History of dilation of urethra Social History Social History (Updated 11/17/19 @ 22:55 by Delisa Cortez DO) Smoking packs per day: 1 Smoking cigarettes per day: 20.0 Years smoked: 35 Smoking pack-years: 35.00 Smoking status: Former smoker Tobacco type: cigarettes and e-cigarettes/vaping Second hand tobacco smoke exposure: No Smoking end date: 12/19/19 Additional smoking assessment comments: Has stopped using E-cigs 12/19/2019.Quit cigarettes 2014 to e-cigs. Alcohol intake: current Drinks per week: 2 Substance use: never Additional living arrangements comments: She lives with her of 30 years. She has 1 son and 1 stepson. She reports that her son is healthy. 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 Gender identity (if verbalized by the patient): Female Spiritual care concerns: No Exam Narrative: Exam Narrative: GENERAL:, well-nourished, and in no acute distress. HEAD: Normocephalic, atraumatic EYES: PERRLA and EOMI, conjunctiva clear without discharge EARS: TM's clear bilaterally without erythema or dullness NOSE: Nares clear, no rhinorrhea or epistaxis THROAT:Mucous membranes moist, Oropharynx normal without erythema, exudate, peritonsillar swelling or fluctuance NECK: Supple, without lymphadenopathy or mass RESPIRATORY: No respiratory distress, Airway patent, Respirations non-labored, Clear to auscultation without rales, rhonchi or wheeze HEART: Regular rate and rhythm. No murmur heard. Normal peripheral pulses. ABDOMEN: Soft, nontender, nondistended, normal active bowel sounds. No masses. No rebound or guarding, No organomegaly. EXTREMITIES: No edema, normal strength with full range of motion. SKIN: Warm, dry, normal color without rash NEURO: Alert and oriented x3. CN 2-12 grossly intact. No focal deficits. PSYCH: Normal mood and affect. Course Course Emergency Course: PAtient presented with worsening sob. Her oxygen saturation goes 90-92% on room ai
[2019-12-28] MEDS: SODIUM CHLORIDE 0.9% IV 1,000 ML 999 ML IV CONT (16:23)
[2019-12-28 16:28] LABS: Basophils Percent Auto 0.2 % (0.2-1.2); Hematocrit 30.4 % (37.0-47.0); Hemoglobin 10.3 g/dL (12.0-15.0); Immature Granulocyte Absolute 0.03 K/mm3 (0.00-0.031); Immature Granulocyte Percent A 0.7 % (0-0.5); Lymphocytes Absolute Auto 1.09 K/mm3 (0.9-3.2); Lymphocytes Percent Auto 24.2 % (18.3-44.2); Mean Corpuscular HGB Conc 33.9 g/dl (32-36); Mean Corpuscular Hemoglobin 28.9 pg (26-34); Mean Corpuscular Volume 85.4 fl (80-100); Mean Platelet Volume 10.6 fl (7.4-10.4); Monocytes Absolute Auto 0.2 K/mm3 (0.1-0.6); Monocytes Percent Auto 4.2 % (2.6-8.5); Neutrophils Absolute Auto 3.2 K/mm3 (1.3-6.7); Neutrophils Percent Auto 70.7 % (45.5-73.1); Platelet Count Result 377 k/mm3 (150-375); Red Blood Count 3.56 M/mm3 (4.2-5.4); Red Cell Distribution Width 12.9 % (11.5-14.5); White Blood Count 4.5 K/mm3 (4.5-10.0)
[2019-12-28 16:38] LABS: Prothrombin Time 12.8 Seconds (11.1-14.7)
[2019-12-28 16:38] LABS: Alveolar/Arterial O2 Gradient 57.4 mmHg; Base Excess ABG -1.9 mEq/l (+/-2.0); Fractional Inspired Oxygen 21 %; HCO3 ABG 21.2 mEq/l (22.0-26.0); Oxygen Saturation ABG 91.1 % (95.0-100.0); Oxyhemoglobin 89.7 % THb (90.0-100.0); PCO2 ABG 30.4 mmHg (35.0-45.0); PO2 ABG 55.9 mmHg (80.0-100.0); PO2 FiO2 Ratio Arterial Blood 2.66 %; Total Hemoglobin 10.3 g/dL (12.0-18.0); pH ABG 7.461 (7.350-7.450)
[2019-12-28 16:39] LABS: Partial Thromboplastin Time 44.5 SECONDS (22.3-36.8)
[2019-12-28 16:39] LABS: Device ROOM AIR; Modified Allen's Test Pass; Site Drawn LEFT RADIAL
[2019-12-28 16:40] LABS: Lactic Acid Reflex 1.2 mmol/L (0.7-2.1)
[2019-12-28 16:41] LABS: D Dimer 1.92 ug/mL (<0.48)
[2019-12-28 16:43] LABS: Lactate Dehydrogenase 1084 U/L (313-618)
[2019-12-28 16:44] LABS: Atypical Lymphocytes Present; Ovalocytes 1+ (NORMAL)
[2019-12-28 16:58] LABS: Alanine Aminotransferase 44 U/L (4-35); Albumin Level 3.6 g/dL (3.5-5.1); Alkaline Phosphatase 250 U/L (38-126); Anion Gap 11 mmol/L (8-16); Aspartate Amino Transferase 61 U/L (14-36); Bilirubin,Total 0.5 mg/dL (0.2-1.3); Blood Urea Nitrogen 12 mg/dL (7-17); Carbon Dioxide 23 mmol/L (22-30); Chloride 93 mmol/L (98-107); Estimated CRCL calculation 50 ml/min; Estimated Glomerular Filt Rate 57; Glucose 140 mg/dL (65-105); Magnesium 2.1 mg/dL (1.6-2.3); Potassium 3.5 mmol/L (3.4-5.0); Sodium 127 mmol/L (137-145)
[2019-12-28] MEDS: SODIUM CHLORIDE 0.9% IV 1,000 ML 125 ML IV CONT (20:12)
--- NOTE | 2019-12-28 20:31 | PM.IMHP ---
H&P: HPI History of Present Illness Date/Time: 12/28/19 21:00 Chief complaint: COVID postive, Increased shortness of breath Narrative: Shagufta Farias is a 59 year old female with a past medical history of recent hospitalization in November for E coli bacteremia due to pyelonephritis, and COVID-19 infection 12/19/2019 who presented to the ER due to increased shortness of breath was found to have COVID-19 associated pneumonia. Patient reports that her symptoms started on 12/18/2019. She has been having increased dry cough. Short of breath at rest with worsening of symptoms with activity. She has had generalized weakness and has had decreased appetite. She has been trying to stay hydrated by drinking Gatorade. Her is frustrated with her because she is not eating. She has not had any nausea or vomiting. She denies any diarrhea or changes in bowel habits. She has noticed decreased sense of taste. She denies loss of sense of smell. She has not had any chest pain or palpitations. She has noticed being more unsteady on her feet and lightheaded with standing. She had been discharged on antibiotic therapy with Augmentin and azithromycin when her CT on 03/2020 demonstrated pneumonia consistent with COVID-19. Her T-max at home was 100.4 but her temperature when she arrived to the ER was 101.3 despite taking Tylenol prior to coming to the ER. she had not had any known COVID-19 exposures. She is working from home. She has not had any recent ill contacts. She has not had any further dysuria, flank pain or congestion. She is having intermittent frontal headache. Her headache is currently moderate in intensity and is usually relieved after taking Tylenol. Review of Systems Review of Systems: Narrative: 12 systems were reviewed with pertinent positives and negatives per HPI. Except as documented in the HPI, all other systems were reviewed and are negative. [facility] Past Medical History Medical History (Updated 12/28/19 @ 23:02 by Delisa Cortez DO) Anxiety Insomnia Pyelonephritis with E coli bacteremia November 17, 2019 Surgical History Surgical History H/O breast augmentation History of dilation of urethra Social History Social History Smoking packs per day: 1 Smoking cigarettes per day: 20.0 Years smoked: 35 Smoking pack-years: 35.00 Smoking status: Former smoker Tobacco type: cigarettes and e-cigarettes/vaping Second hand tobacco smoke exposure: No Smoking end date: 12/19/19 Additional smoking assessment comments: Has stopped using E-cigs 12/19/2019.Quit cigarettes 2015 to e-cigs. Alcohol intake: current Drinks per week: 2 Substance use: never Additional living arrangements comments: She lives with her of 30 years. She has 1 son and 1 stepson. She reports that her son is healthy. 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 Gender identity (if verbalized by the patient): Female Spiritual care concerns: No Meds Home Medications and Allergies Home Medications Medication Instructions Recorded Confirmed Type zolpidem 10 mg PO HS 11/17/19 12/28/19 History Allergies Allergy/AdvReac Type Severity Reaction Status Date / Time Sulfa (Sulfonamide Allergy Unknown Unknown Verified 12/28/19 16:00 Antibiotics) Vital Signs Vital Signs - 24 hr 12/28/19 15:53 12/28/19 16:02 12/28/19 16:30 Temperature 98.6 F Pulse Rate 103 H 102 H 97 Respiratory Rate 18 31 H 23 H Blood Pressure 108/63 100/66 93/72 L Pulse Oximetry 92 93 92 12/28/19 17:01 12/28/19 17:18 12/28/19 18:07 Temperature Pulse Rate 97 91 94 Respiratory Rate 25 H 18 20 Blood Pressure 104/81 109/75 113/72 Pulse Oximetry 94 12/28/19 18:31 12/28/19 19:00 Temperature Pulse Rate 97 93 Respiratory Rate 27 H 27 H Blood Pressure
--- NOTE | 2019-12-28 20:56 | ADMGEN ---
This patient, Shagufta Farias, was admitted to [facility] Surg Room 327-01. Patient/family oriented to hospital policies and general routines including ID bracelet, bed and alarms, visiting hours, pain management, procedures, bathroom and other care routines, personal items, smoking policy, room service/diet, and visiting hours. Valuables list has been completed. Information on how to activate the Rapid Response Team has been discussed. Patient/Family are encouraged to report perceived risks to care and to ask questions if they do not understand what they are told or what they should do.
[2019-12-29] VITALS (7 sets, daily range): BP systolic 94–121; BP diastolic 67–72; PULSE 81–114; RESP 18–22; TEMP 36.4–37.2; O2SAT 87–97
[2019-12-29] MEDS: ZOLPIDEM TARTRATE 5 MG TABLET 10 MG PO ×2 (00:17→21:27)
[2019-12-29] MEDS: SODIUM CHLORIDE 0.9% IV 1,000 ML 125 ML IV CONT ×2 (05:54→08:07)
[2019-12-29 06:11] LABS: Hematocrit 25.9 % (37.0-47.0); Hemoglobin 8.8 g/dL (12.0-15.0); Immature Granulocyte Absolute 0.02 K/mm3 (0.00-0.031); Immature Granulocyte Percent A 1.1 % (0-0.5); Lymphocytes Absolute Auto 0.49 K/mm3 (0.9-3.2); Lymphocytes Percent Auto 25.8 % (18.3-44.2); Mean Corpuscular Hemoglobin 29.3 pg (26-34); Mean Corpuscular Volume 86.3 fl (80-100); Mean Platelet Volume 10.1 fl (7.4-10.4); Monocytes Absolute Auto 0.1 K/mm3 (0.1-0.6); Monocytes Percent Auto 3.7 % (2.6-8.5); Neutrophils Absolute Auto 1.3 K/mm3 (1.3-6.7); Neutrophils Percent Auto 69.4 % (45.5-73.1); Platelet Count Result 364 k/mm3 (150-375)
[2019-12-29 06:30] LABS: Alanine Aminotransferase 33 U/L (4-35); Albumin Level 3.1 g/dL (3.5-5.1); Alkaline Phosphatase 197 U/L (38-126); Anion Gap 6 mmol/L (8-16); Aspartate Amino Transferase 40 U/L (14-36); Bilirubin,Total 0.4 mg/dL (0.2-1.3); Blood Urea Nitrogen 7 mg/dL (7-17); Calcium 7.5 mg/dL (8.4-10.2); Carbon Dioxide 24 mmol/L (22-30); Chloride 99 mmol/L (98-107); Estimated CRCL calculation 70 ml/min; Estimated Glomerular Filt Rate > 60; Glucose 138 mg/dL (65-105); Potassium 3.8 mmol/L (3.4-5.0); Sodium 129 mmol/L (137-145)
[2019-12-29 06:43] LABS: White Blood Count 1.9 K/mm3 (4.5-10.0)
[2019-12-29] MEDS: ENOXAPARIN 40 MG/0.4 ML SYRINGE SUB-Q (08:07)
[2019-12-29] MEDS: ACETAMINOPHEN 325 MG TABLET 650 MG PO ×2 (08:14→21:29)
--- NOTE | 2019-12-29 14:01 | PCPTNOTE ---
Attempted PT eval. Pt refused therapy, states she just worked with OT and is too tired to do any more today. Will try again at tomorrow.
--- NOTE | 2019-12-29 16:45 | PM.IMPN ---
Progress Note: A&P Assessment and Plan (1) Pneumonia due to COVID-19 virus: Code(s): U07.1 - COVID-19; J12.89 - Other viral pneumonia Status: Acute Assessment and Plan: -----continue dexamethasone and oxygen supplementation. Wean oxygen as tolerated. The patient is feeling much better so we will continue with this treatment. The patient still looks hypovolemic and has dry mucous membranes so I am going to continue IV fluids but hopefully these can be stopped tomorrow morning. Inflammatory markers elevated as well as her liver function test. She also has leukopenia which is likely due to viral illness. Will monitor. (2) Acute hyponatremia: Code(s): E87.1 - Hypo-osmolality and hyponatremia Status: Acute Assessment and Plan: -----improved with IV fluids to 129. She still looks dehydrated so I will continue with these as stated above. Time Spent With Patient Time with patient: 25 - 35 minutes Subjective Date/time seen: 12/29/19 16:45 Interval history: Pt is a 59-year-old female here for COVID pneumonia. Patient was seen today and states she is feeling better since hospitalized with oxygen. She is still having a dry cough but does not feel short of breath at rest. She feels very weak and is on day 11 of her COVID-19 symptoms. Today is the 1st day that she is eaten most of her meal. She has CP when she breaths deeply. She still feels dehydrated and has a dry mouth. Review of Systems Review of Systems: All systems reviewed & are unremarkable except as noted in HPI and below Exam Narrative: Exam Narrative: General: Well developed well nourished patient resting in bed in NAD HEENT: normocephalic, dry mucus membranes Neck: supple Neuro: Alert and oriented x4 CV:RRR Resp:CTA Abd: Soft, non distended. No pain to palpation. Positive bowel sounds Extremities: No swelling, erythema, or pain to palpation. Objective Data Vital Signs Vital Signs: Vital Signs - 24 hr 12/28/19 17:01 12/28/19 17:18 12/28/19 18:07 Temperature Pulse Rate 97 91 94 Respiratory Rate 25 H 18 20 Blood Pressure 104/81 109/75 113/72 Pulse Oximetry 94 12/28/19 18:31 12/28/19 19:00 12/28/19 19:45 Temperature 98.5 F Pulse Rate 97 93 99 Respiratory Rate 27 H 27 H 20 Blood Pressure 117/78 118/74 112/71 Pulse Oximetry 90 92 91 12/29/19 00:00 12/29/19 04:00 12/29/19 08:00 Temperature 98.7 F 98.4 F 98.2 F Pulse Rate 94 93 91 Respiratory Rate 22 H 22 H 22 H Blood Pressure 111/70 116/70 116/71 Pulse Oximetry 87 L 91 93 12/29/19 12:00 12/29/19 14:00 12/29/19 16:00 Temperature 99.0 F 97.7 F 97.5 F L Pulse Rate 114 H 81 97 Respiratory Rate 18 18 20 Blood Pressure 121/72 115/67 94/67 L Pulse Oximetry 97 93 95 Intake/Output Intake/Output: Intake & Output 12/26/19 12/27/19 12/28/19 12/29/19 23:59 23:59 23:59 23:59 Intake Total 1000 2640 Output Total 450 Balance 1000 2190 Meds/Results Medications: Active Medications Generic Name Dose Route Start Last Admin Trade Name Freq PRN Reason Stop Dose Admin Acetaminophen 650 mg 12/28/19 23:07 12/29/19 08:14 Tylenol Tablet PO 650 mg Q4H PRN Administration Mild Pain (1-3) or Fever Dexamethasone Sodium Phosphate 6 mg 12/28/19 20:40 12/29/19 08:06 Decadron 10 Mg/Ml Inj IV PUSH 01/06/20 09:01 6 mg DAILY ZOHRA Administration Enoxaparin Sodium 40 mg 12/29/19 09:00 12/29/19 08:07 Lovenox SUB-Q 40 mg DAILY ZOHRA Administration Sodium Chloride 1,000 mls @ 80 mls/hr 12/28/19 18:20 12/29/19 11:42 Normal Saline Iv IV CONT 80 mls/hr .[id number] ZOHRA Infusion Ondansetron HCl 4 mg 12/28/19 18:16 Zofran Inj IV PUSH Q4H PRN Nausea Zolpidem Tartrate 10 mg 12/28/19 23:00 12/29/19 00:17 Ambien PO 10 mg HS ZOHRA Administration Radiology Results: ITS Impressions Chest X-Ray 12/28/19 16:53 IMPRESSION: 1. Subtle lung disease in the bilateral lower lung zones wh
[2019-12-29] MEDS: SODIUM CHLORIDE 0.9% IV 1,000 ML 80 ML IV CONT (18:58)
[2019-12-30] VITALS (7 sets, daily range): BP systolic 95–131; BP diastolic 57–84; PULSE 81–100; RESP 16–22; TEMP 36.4–36.8; O2SAT 91–98
[2019-12-30] MEDS: SODIUM CHLORIDE 0.9% IV 1,000 ML 80 ML IV CONT ×2 (05:30→21:22)
[2019-12-30 06:31] LABS: Hematocrit 25.1 % (37.0-47.0); Hemoglobin 8.5 g/dL (12.0-15.0); Mean Corpuscular HGB Conc 33.9 g/dl (32-36); Mean Corpuscular Hemoglobin 29.3 pg (26-34); Mean Corpuscular Volume 86.6 fl (80-100); Platelet Count Result 454 k/mm3 (150-375); Red Cell Distribution Width 12.8 % (11.5-14.5); White Blood Count 5.4 K/mm3 (4.5-10.0)
[2019-12-30 06:48] LABS: D Dimer 0.85 ug/mL (<0.48)
[2019-12-30 06:58] LABS: Alanine Aminotransferase 31 U/L (4-35); Albumin Level 2.9 g/dL (3.5-5.1); Alkaline Phosphatase 170 U/L (38-126); Anion Gap 6 mmol/L (8-16); Aspartate Amino Transferase 42 U/L (14-36); Bilirubin,Total 0.2 mg/dL (0.2-1.3); Blood Urea Nitrogen 7 mg/dL (7-17); CRP 5.9 mg/dL (<1.0); Calcium 7.8 mg/dL (8.4-10.2); Carbon Dioxide 23 mmol/L (22-30); Chloride 104 mmol/L (98-107); Estimated CRCL calculation 70 ml/min; Estimated Glomerular Filt Rate > 60; Glucose 138 mg/dL (65-105); Magnesium 2.1 mg/dL (1.6-2.3); Phosphorus 2.1 mg/dL (2.5-4.5); Potassium 3.5 mmol/L (3.4-5.0); Sodium 133 mmol/L (137-145)
[2019-12-30] MEDS: POTASSIUM PHOS,M-BASIC-D-BASIC 20 MMOL in SODIUM CHLORIDE 0.9% IV 250 ML 64 MMOL IVPB (08:47)
[2019-12-30] MEDS: ENOXAPARIN 40 MG/0.4 ML SYRINGE SUB-Q (08:47)
[2019-12-30] MEDS: ACETAMINOPHEN 325 MG TABLET 650 MG PO ×2 (13:45→21:22)
--- NOTE | 2019-12-30 16:43 | PM.IMPN ---
Progress Note: A&P Assessment and Plan (1) Pneumonia due to COVID-19 virus: Code(s): U07.1 - COVID-19; J12.89 - Other viral pneumonia Status: Acute Assessment and Plan: -----continue dexamethasone and oxygen supplementation. Wean oxygen as tolerated. The patient is feeling much better so we will continue with this treatment. The patient still looks hypovolemic and has dry mucous membranes with a low bp so I am going to continue IV fluids but hopefully these can be stopped tomorrow. Inflammatory markers improved. She also had leukopenia which is likely due to viral illness. Will monitor. (2) Acute hyponatremia: Code(s): E87.1 - Hypo-osmolality and hyponatremia Status: Acute Assessment and Plan: -----improved with IV fluids to 133. She still looks dehydrated so I will continue with these as stated above. (3) Bone island: Code(s): M89.8X9 - Other specified disorders of bone, unspecified site Status: Acute Assessment and Plan: -----CTA showed new sclerotic bone lesion at the right humeral head likely bone island. No current malignancy known. She should follow-up with routine screening. Subjective Date/time seen: 12/30/19 16:43 Interval history: Pt is a 59-year-old female here for COVID pneumonia. Patient was seen today and states she is feeling better than she was on admission but still not feeling great. She had a lot of trouble walking to and from the bathroom with shortness of breath and it caused her to have some anxiety. She does not have any shortness of breath at rest. She still has coughing fits every once in a while and has significant stabbing chest pain when this happens. She is still eating and drinking better than when she was admitted. She has not had any diarrhea or constipation. Exam Narrative: Exam Narrative: General: Well developed well nourished patient resting in bed in NAD HEENT: normocephalic, dry mucus membranes Neck: supple Neuro: Alert and oriented x4 CV:RRR Resp:CTA Abd: Soft, non distended. No pain to palpation. Positive bowel sounds Extremities: No swelling, erythema, or pain to palpation. Objective Data Vital Signs Vital Signs: Vital Signs - 24 hr 12/29/19 20:00 12/30/19 00:00 12/30/19 04:00 Temperature 97.8 F 98.3 F 98.1 F Pulse Rate 94 88 86 Respiratory Rate 20 20 18 Blood Pressure 121/67 118/78 130/65 Pulse Oximetry 93 98 94 12/30/19 08:00 12/30/19 10:04 12/30/19 12:00 Temperature 97.7 F 97.9 F Pulse Rate 91 94 Respiratory Rate 22 H 22 H Blood Pressure 129/77 95/57 L Pulse Oximetry 93 93 94 12/30/19 16:00 Temperature 97.5 F L Pulse Rate 100 Respiratory Rate 22 H Blood Pressure 99/66 L Pulse Oximetry 95 Intake/Output Intake/Output: Intake & Output 12/27/19 12/28/19 12/29/19 12/30/19 23:59 23:59 23:59 23:59 Intake Total 1000 5490 1880 Output Total 450 1000 Balance 1000 5040 880 Meds/Results Medications: Active Medications Generic Name Dose Route Start Last Admin Trade Name Freq PRN Reason Stop Dose Admin Acetaminophen 650 mg 12/28/19 23:07 12/30/19 13:45 Tylenol Tablet PO 650 mg Q4H PRN Administration Mild Pain (1-3) or Fever Dexamethasone Sodium Phosphate 6 mg 12/28/19 20:40 12/30/19 08:47 Decadron 10 Mg/Ml Inj IV PUSH 01/06/20 09:01 6 mg DAILY ZOHRA Administration Enoxaparin Sodium 40 mg 12/29/19 09:00 12/30/19 08:47 Lovenox SUB-Q 40 mg DAILY ZOHRA Administration Sodium Chloride 1,000 mls @ 80 mls/hr 12/28/19 18:20 12/30/19 05:30 Normal Saline Iv IV CONT 80 mls/hr .[id number] ZOHRA Administration Ondansetron HCl 4 mg 12/28/19 18:16 Zofran Inj IV PUSH Q4H PRN Nausea Zolpidem Tartrate 10 mg 12/28/19 23:00 12/29/19 21:27 Ambien PO 10 mg HS ZOHRA Administration Radiology Results: ITS Impressions Chest X-Ray 12/28/19 16:53 IMPRESSION: 1. Subtle lung disease in the bilateral lower lung zo
[2019-12-30] MEDS: ZOLPIDEM TARTRATE 5 MG TABLET 10 MG PO (21:22)
[2019-12-31] VITALS (7 sets, daily range): BP systolic 108–149; BP diastolic 56–83; PULSE 66–77; RESP 16–20; TEMP 36.4–36.7; O2SAT 91–97
[2019-12-31 06:34] LABS: Hematocrit 24.5 % (37.0-47.0); Hemoglobin 8.2 g/dL (12.0-15.0); Mean Corpuscular HGB Conc 33.5 g/dl (32-36); Mean Corpuscular Hemoglobin 28.9 pg (26-34); Mean Corpuscular Volume 86.3 fl (80-100); Platelet Count Result 494 k/mm3 (150-375); Red Blood Count 2.84 M/mm3 (4.2-5.4); Red Cell Distribution Width 12.8 % (11.5-14.5); White Blood Count 6.9 K/mm3 (4.5-10.0)
[2019-12-31 06:46] LABS: Anion Gap 5 mmol/L (8-16); Blood Urea Nitrogen 8 mg/dL (7-17); Calcium 7.6 mg/dL (8.4-10.2); Carbon Dioxide 25 mmol/L (22-30); Chloride 103 mmol/L (98-107); Estimated CRCL calculation 80 ml/min; Estimated Glomerular Filt Rate > 60; Glucose 116 mg/dL (65-105); Potassium 3.3 mmol/L (3.4-5.0); Sodium 133 mmol/L (137-145)
[2019-12-31] MEDS: ENOXAPARIN 40 MG/0.4 ML SYRINGE SUB-Q (08:04)
[2019-12-31] MEDS: POTASSIUM CHLORIDE 20 MEQ TABLET PO (08:15)
--- NOTE | 2019-12-31 14:19 | PM.IMPN ---
Progress Note: A&P Assessment and Plan (1) Pneumonia due to COVID-19 virus: Code(s): U07.1 - COVID-19; J12.89 - Other viral pneumonia Status: Acute Assessment and Plan: -----continue dexamethasone and oxygen supplementation. Wean oxygen as tolerated. The patient is feeling much better but still has significant MURRAY. No PE on CTA. The patient still looks euvolemic and IV fluids have been stopped. Will recheck inflammatory labs and CXR tomorrow. (2) Acute hyponatremia: Code(s): E87.1 - Hypo-osmolality and hyponatremia Status: Acute Assessment and Plan: -----improved with IV fluids to 133. continue oral hydration (3) Bone island: Code(s): M89.8X9 - Other specified disorders of bone, unspecified site Status: Acute Assessment and Plan: -----CTA showed new sclerotic bone lesion at the right humeral head likely bone island. No current malignancy known. She should follow-up with routine screening. Subjective Date/time seen: 12/31/19 14:19 Interval history: Pt is a 59-year-old female here for COVID pneumonia. Patient was seen today And states she is still feeling short of breath with exertion. she was able to get up and take a shower today but had to sit down during it and had to go slower. Her cough has improved but is still there. She is eating and drinking well. She denies chest pain fevers, chills, abdominal pain, nausea, vomiting, or leg swelling. Exam Narrative: Exam Narrative: General: Well developed well nourished patient resting in bed in [facility] HEENT: normocephalic, moist mucus membranes Neck: supple Neuro: Alert and oriented x4 CV:RRR Resp:CTA Abd: Soft, non distended. No pain to palpation. Positive bowel sounds Extremities: No swelling, erythema, or pain to palpation. Objective Data Vital Signs Vital Signs: Vital Signs - 24 hr 12/30/19 16:00 12/30/19 20:00 12/31/19 00:00 Temperature 97.5 F L 98.3 F 98.1 F Pulse Rate 100 81 77 Respiratory Rate 22 H 16 16 Blood Pressure 99/66 L 131/84 129/80 Pulse Oximetry 95 95 95 12/31/19 04:00 12/31/19 08:00 12/31/19 12:00 Temperature 97.8 F 97.6 F 97.7 F Pulse Rate 68 66 75 Respiratory Rate 20 18 20 Blood Pressure 147/83 H 149/82 H 113/69 Pulse Oximetry 97 92 96 12/31/19 14:09 Temperature Pulse Rate Respiratory Rate Blood Pressure Pulse Oximetry 93 Intake/Output Intake/Output: Intake & Output 12/28/19 12/29/19 12/30/19 12/31/19 23:59 23:59 23:59 23:59 Intake Total 1000 5490 3720 540 Output Total 450 1650 Balance 1000 5040 2070 540 Meds/Results Medications: Active Medications Generic Name Dose Route Start Last Admin Trade Name Freq PRN Reason Stop Dose Admin Acetaminophen 650 mg 12/28/19 23:07 12/30/19 21:22 Tylenol Tablet PO 650 mg Q4H PRN Administration Mild Pain (1-3) or Fever Dexamethasone Sodium Phosphate 6 mg 12/28/19 20:40 12/31/19 08:03 Decadron 10 Mg/Ml Inj IV PUSH 01/06/20 09:01 6 mg DAILY ZOHRA Administration Enoxaparin Sodium 40 mg 12/29/19 09:00 12/31/19 08:04 Lovenox SUB-Q 40 mg DAILY ZOHRA Administration Ondansetron HCl 4 mg 12/28/19 18:16 Zofran Inj IV PUSH Q4H PRN Nausea Zolpidem Tartrate 10 mg 12/28/19 23:00 12/30/19 21:22 Ambien PO 10 mg HS ZOHRA Administration Radiology Results: ITS Impressions Chest X-Ray 12/28/19 16:53 IMPRESSION: 1. Subtle lung disease in the bilateral lower lung zones which could represent pneumonia, pulmonary edema or chronic interstitial lung disease. 2. New sclerotic lesion projecting over the right humeral head with differential including bone island, this body or sclerotic metastasis if there is history of prior malignancy. Correlate with planned chest CT and if suspicion for metastasis remains would consider bone scan for further evaluation. Chest CTA 12/28/19 17:46 IMPRESSION: 1. No pulmonary embolism. 2. Interval progression of js
[2019-12-31] MEDS: ACETAMINOPHEN 325 MG TABLET 650 MG PO (14:23)
[2019-12-31] MEDS: ZOLPIDEM TARTRATE 5 MG TABLET 10 MG PO (21:58)
[2020-01-01] VITALS (10 sets, daily range): BP systolic 106–150; BP diastolic 64–79; PULSE 65–129; RESP 16–20; TEMP 36.4–36.5; O2SAT 87–94
[2020-01-01] MEDS: ACETAMINOPHEN 325 MG TABLET 650 MG PO (00:16)
[2020-01-01 06:50] LABS: Hematocrit 26.5 % (37.0-47.0); Mean Corpuscular Hemoglobin 29.2 pg (26-34); Platelet Count Result 603 k/mm3 (150-375); Red Blood Count 3.08 M/mm3 (4.2-5.4); Red Cell Distribution Width 12.9 % (11.5-14.5); White Blood Count 9.6 K/mm3 (4.5-10.0)
[2020-01-01 07:14] LABS: Alanine Aminotransferase 44 U/L (4-35); Albumin Level 2.9 g/dL (3.5-5.1); Alkaline Phosphatase 126 U/L (38-126); Anion Gap 6 mmol/L (8-16); Aspartate Amino Transferase 38 U/L (14-36); Bilirubin,Total 0.3 mg/dL (0.2-1.3); Blood Urea Nitrogen 11 mg/dL (7-17); CRP 1.9 mg/dL (<1.0); Calcium 7.9 mg/dL (8.4-10.2); Carbon Dioxide 26 mmol/L (22-30); Chloride 101 mmol/L (98-107); Estimated CRCL calculation 70 ml/min; Estimated Glomerular Filt Rate > 60; Glucose 97 mg/dL (65-105); Lactate Dehydrogenase 565 U/L (313-618); Phosphorus 2.9 mg/dL (2.5-4.5); Potassium 3.5 mmol/L (3.4-5.0); Sodium 133 mmol/L (137-145)
[2020-01-01 07:25] LABS: D Dimer 0.94 ug/mL (<0.48)
[2020-01-01] MEDS: ENOXAPARIN 40 MG/0.4 ML SYRINGE SUB-Q (08:47)
[2020-01-01] MEDS: ALBUTEROL SULFATE (*SP) AEROSOL 1 PUFF 2 PUFF INHALATION ×2 (09:28→11:45)
--- NOTE | 2020-01-01 12:59 | PM.DS ---
DS: Admitting Diagnosis Admitting Diagnosis Admitting Diagnosis: COVID postive, Increased shortness of breath DS: Discharge Diagnosis Discharge Diagnosis (1) Pneumonia due to COVID-19 virus: Code(s): U07.1 - COVID-19; J12.89 - Other viral pneumonia Status: Acute Assessment and Plan: -----patient utilize dexamethasone and oxygen during her hospital stay. She gradually improved and was eating more the day of discharge. Her main complaint was dyspnea on exertion but had no shortness of breath at rest. Home oxygen evaluation revealed that she required 1 L of oxygen with activity only. The day of discharge, the patient was feeling much better and wanted to go home. Her chest x-ray did seem a bit worse but clinically, she was better. There was no PE on CTA. Patient was eating and drinking well. She is to follow-up with her primary care physician and come back if she worsens. (2) Acute hyponatremia: Code(s): E87.1 - Hypo-osmolality and hyponatremia Status: Acute Assessment and Plan: -----improved with IV fluids to 133. continue oral hydration (3) Bone island: Code(s): M89.8X9 - Other specified disorders of bone, unspecified site Status: Acute Assessment and Plan: -----CTA showed new sclerotic bone lesion at the right humeral head likely bone island. No current malignancy known. She should follow-up with routine screening. Follow-up screenings were discussed DS: Summary Hospital Course Reason for hospitalization: COVID-19 Hospital Course: Patient is a 59-year-old female known Covid positive who presented emergency room for worsening shortness of breath with minimal activity and decreased appetite. Vitals in the ER were temperature 98.6?, pulse 103, respiratory rate 18, blood pressure 108/63, pulse ox 92 on room air. White blood cell count 4.5, hemoglobin 10.3, hematocrit 30.4, platelets 377. Initial sodium 127, potassium 3.5, chloride 93, carbon dioxide 23, BUN 12, creatinine 1.0, glucose 140. CTA of the chest showed no pulmonary emboli with progression of bilateral peripheral and lower lung disease likely COVID pneumonia less likely pulmonary edema. There is also mention of a new small sclerotic bone lesion of the right humeral head most likely representing a bone island. Patient was admitted to the hospitalist service and started on dexamethasone and oxygen therapy. She gradually improved with this until she was off oxygen at rest. She continued to have dyspnea on exertion with activity and required 1 L of oxygen with activity at discharge. Overall, the patient was eating and drinking better and feeling closer to baseline. She was educated about the worrisome signs and symptoms come back to the emergency room for and was discharged in stable condition. She is to follow-up with her primary care physician. We also stalked about her routine colonoscopy and mammographies which should be done. Status at Discharge Functional status at discharge: independent ambulation Overall status at discharge: patient is progressing back to baseline Time Spent with Patient Time attestation: Total time spent providing and/or coordinating discharge services:36 min Time spent: Greater than 30 minutes Exam Narrative: Exam Narrative: General: Well developed well nourished patient resting in bed in [facility] HEENT: normocephalic, moist mucus membranes Neck: supple Neuro: Alert and oriented x4 CV:RRR Resp:CTA Abd: Soft, non distended. No pain to palpation. Positive bowel sounds Extremities: No swelling, erythema, or pain to palpation. DS: Data Data Completed and Pending Labs on day of discharge: Labs from last 24 hours 01/01/20 01/01/20 01/01/20 06:40 06:40 06:40 WBC RBC Hgb Hct MCV MCH MCHC RDW Plt Count MPV D-Dimer 0.94 H Sodium 133 L Potassium 3.5 Chloride 101 Carbon Dioxide 26 Anion Gap 6 L BUN 11 Crea
--- NOTE | 2020-01-01 14:24 | HOMEO2EVAL ---
Home Oxygen Evaluation RC: Home Oxygen (O2) Evaluation Start: 01/01/20 07:38 Freq: ONCE Status: Active Protocol: RPE Activity Type Activity Date Activity User E-Sign Co-Sign Detail Recorded Client Recorded Date Recorded By Document 01/01/20 11:45 [email or web address] [email or web address] 01/01/20 14:24 KRM Document 01/01/20 11:47 [email or web address] [email or web address] 01/01/20 14:24 KRM Document 01/01/20 11:49 [email or web address] [email or web address] 01/01/20 14:24 KRM Document 01/01/20 11:52 [email or web address] [email or web address] 01/01/20 14:24 KRM Document 01/01/20 12:00 [email or web address] [email or web address] 01/01/20 14:24 KRM 01/01/20 01/01/20 01/01/20 11:45 11:47 11:49 Home O2 Evaluation Test Phase Resting Exercise Exercise Oxygen Delivery Room Air Room Air Room Air Oxygen Flow Rate (L/min) Pulse Oximetry (90-100 %) 90 88 L 87 L Pulse Rate (60-100 beats/min) 108 H 129 H 128 H Activity Tolerance Fair Fair Home Oxygen Evaluation Comments Treatment Charges O2 Evaluation 01/01/20 01/01/20 11:52 12:00 Home O2 Evaluation Test Phase Exercise Resting Oxygen Delivery Nasal Cannula Room Air Oxygen Flow Rate (L/min) 1 Pulse Oximetry (90-100 %) 90 91 Pulse Rate (60-100 beats/min) 110 H 105 H Activity Tolerance Fair Home Oxygen Evaluation Comments 75 1lpm with activity Treatment Charges
--- NOTE | 2020-01-01 14:33 | PCRCNOTE ---
set patient up with [facility] for oxygen
--- NOTE | 2020-01-09 12:21 | PC.NURSE ---
Blood cx are negative.
== END 2020-01-01 16:08 | disposition home or self-care (01) | DRG 177 ==
LOC: ANHED 18:23 → ANH3MEDSUR 19:15
PROVIDERS: Admitting Provider Family Medicine; Emergency Provider General Practice; PCP Family Medicine Sports Medicine; Visit Provider Physician Assistant
DX: U07.1 COVID-19 (principal); J12.89 Other viral pneumonia; E87.1 Hypo-osmolality and hyponatremia; F41.9 Anxiety disorder, unspecified; E86.0 Dehydration; M89.8X9 Other specified disorders of bone, unspecified site; Z87.891 Personal history of nicotine dependence
CPT/HCPCS: 36415; 36600; 71045; 71275; 80048; 80053; 80076; 82728; 82805; 83605; 83615; 83735; 84100; 85025; 85027; 85380; 85610; 85730; 86140; 87040; 94618; 94640; 96360; 97161; 97165; 99285; A9270; J1100; J1650; J7030; J7050; Q9967

== ENCOUNTER 2020-10-27 23:29 | Emergency (ER) | payer OTHER, BC, SELFPAY ==
--- NOTE | ~2020-10-27 | CT_ITS ---
EXAMINATION: CT abdomen pelvis w con DATE: 10/28/2020 01:11 INDICATION: Right upper quadrant abdominal pain. TECHNIQUE: Computed tomography (CT) of the abdomen and pelvis was performed with 100 mL Omnipaque-350 intravenous contrast. Automated exposure control and iterative reconstruction technique were employe d. The dose-length product was 367.80 mGy-cm. COMPARISON: 12/19/2019 FINDINGS: Minimal dependent atelectasis in the bilateral lower lobes. Heart size is normal. No pericardial or p leural effusion. After calcifications at bilateral breast implants. Suggestion of bilateral intracaps ular implant ruptures mild periportal edema at the liver. The gallbladder is dilated to 4.5 cm with t race pericholecystic fluid suspicious for acute cholecystitis. Tiny phrygian cap versus focal adenomy omatosis at the tip of the gallbladder fundus. Common bile duct is dilated to 10 mm. No evident obstr ucting stone or mass identified. Spleen, pancreas, bilateral kidneys and right adrenal gland are norm al. No significant change in a 12 mm left adrenal adenoma with characteristic low-attenuation prior n oncontrast CT. There are a few scattered colonic diverticula predominantly along the sigmoid colon wi thout adjacent inflammatory change to suggest diverticulitis. Normal appendix. No bowel obstruction. Bladder, anteverted uterus and bilateral adnexa are normal. No pathologically enlarged abdominal or p elvic lymphadenopathy. Mild scattered degenerative skeletal changes. A couple small sclerotic bone is lands at the proximal right femur. IMPRESSION: 1. Common bile duct is dilated to 10 mm with mild dilation of the gallbladder, trace amount of perich olecystic fluid and periportal edema in the liver. Differential would include biliary obstruction and /or acute cholecystitis. Correlate for Diggs and could consider further evaluation with MRCP, right upper quadrant ultrasound or HIDA scan as clinically indicated. Reviewed, dictated and finalized at location A. IMPRESSION: 1. Common bile duct is dilated to 10 mm with mild dilation of the gallbladder, trace amount of pericholecystic fluid and periportal edema in the liver. Differ ential would include biliary obstruction and/or acute cholecystitis. Correlate for Diggs and could consider further evaluation with MRCP, right upper quadran t ultrasound or HIDA scan as clinically indicated.
[2020-10-28] MEDS: SODIUM CHLORIDE 0.9% IV 1,000 ML 999 ML IV CONT (00:37)
[2020-10-28] MEDS: MORPHINE SULFATE (*CRX) 4 MG/ML INJ IV PUSH (00:37)
[2020-10-28 00:39] LABS: Add Urine Microscopic? NO; Appearance Urine Clear (Clear); Bilirubin Urine Negative (Negative); Blood Urine Negative (Negative); Color Urine Straw (Yellow); Glucose Urine UA Negative (Negative); Ketones Urine Negative (Negative); Leukocyte Esterase Ur Negative LEU/UL (Negative); Nitrate Urine Negative (Negative); Protein Urine Negative (Negative); Specific Grav Ur 1.012 (1.001-1.035); Urobilinogen Urine Negative mg/dL (<2.0)
[2020-10-28 00:42] LABS: Basophils Absolute Auto 0.1 K/mm3 (0.0-0.1); Basophils Percent Auto 0.7 % (0.2-1.2); Eosinophils Absolute Auto 0.1 K/mm3 (0-0.3); Eosinophils Percent Auto 1.6 % (0-4.4); Hematocrit 39.1 % (37.0-47.0); Hemoglobin 12.7 g/dL (12.0-15.0); Immature Granulocyte Absolute 0.03 K/mm3 (0.00-0.031); Immature Granulocyte Percent A 0.4 % (0-0.5); Lymphocytes Absolute Auto 2.28 K/mm3 (0.9-3.2); Lymphocytes Percent Auto 31.2 % (18.3-44.2); Mean Corpuscular HGB Conc 32.5 g/dl (32-36); Mean Corpuscular Hemoglobin 29.6 pg (26-34); Mean Corpuscular Volume 91.1 fl (80-100); Mean Platelet Volume 10.8 fl (7.4-10.4); Monocytes Absolute Auto 0.6 K/mm3 (0.1-0.6); Monocytes Percent Auto 7.7 % (2.6-8.5); Neutrophils Absolute Auto 4.3 K/mm3 (1.3-6.7); Neutrophils Percent Auto 58.4 % (45.5-73.1); Platelet Count Result 274 k/mm3 (150-375); Red Blood Count 4.29 M/mm3 (4.2-5.4); Red Cell Distribution Width 13.4 % (11.5-14.5); White Blood Count 7.3 K/mm3 (4.5-10.0)
[2020-10-28 00:45] LABS: Alanine Aminotransferase 35 U/L (4-35); Albumin Level 4.6 g/dL (3.5-5.1); Alkaline Phosphatase 68 U/L (38-126); Anion Gap 9 mmol/L (8-16); Aspartate Amino Transferase 59 U/L (14-36); Bilirubin,Total 0.6 mg/dL (0.2-1.3); Blood Urea Nitrogen 15 mg/dL (7-17); Calcium 9.4 mg/dL (8.4-10.2); Carbon Dioxide 27 mmol/L (22-30); Chloride 99 mmol/L (98-107); Estimated CRCL calculation 49 ml/min; Estimated Glomerular Filt Rate 57; Glucose 116 mg/dL (65-105); Lipase 95 U/L (23-300); Potassium 3.7 mmol/L (3.4-5.0); Sodium 135 mmol/L (137-145)
--- NOTE | 2020-10-28 02:58 | ED.ABDPAIN ---
HPI - Abdominal Pain General Chief Complaint: Abdominal Pain Stated Complaint: Abdominal pain Time Seen by Provider: 10/28/20 00:00 History of Present Illness HPI narrative: Patient is a 60-year-old female who presents ER with sudden onset abdominal pain. Located in the right upper quadrant. No radiation. Associate with some nausea but no vomiting. No fevers or chills or sweats. No association with eating. Has not had symptoms like this previously. Related Data Home Medications Medication Instructions Recorded Confirmed zolpidem 10 mg PO HS 11/17/19 12/28/19 Allergies Allergy/AdvReac Type Severity Reaction Status Date / Time Sulfa (Sulfonamide Allergy Unknown Unknown Verified 10/27/20 23:30 Antibiotics) Review of Systems Review of Systems: All systems reviewed & are unremarkable except as noted in HPI and below Constitutional: Constitutional: Denies chills, Denies fever(s) and Denies weakness Cardiovascular: Cardiovascular: Denies chest pain and Denies radiating jaw, neck or arm pain Respiratory: Respiratory: Denies cough and Denies dyspnea Gastrointestinal: Gastrointestinal: Reports abdominal pain, Denies diarrhea, Reports nausea and Denies vomiting Musculoskeletal: Musculoskeletal: Denies back pain [facility] Past Medical History Medical History (Updated 10/28/20 @ 03:33 by Livan Emerson MD) Anxiety Insomnia Pyelonephritis with E coli bacteremia November 17, 2019 Surgical History Surgical History H/O breast augmentation History of dilation of urethra Family History Family History Mother Dementia Schizophrenia Father Dementia Parkinsons disease Sibling Breast cancer Social History Social History Smoking packs per day: 1 Smoking cigarettes per day: 20.0 Years smoked: 35 Smoking pack-years: 35.00 Smoking status: Former smoker Tobacco type: cigarettes and e-cigarettes/vaping Second hand tobacco smoke exposure: No Smoking end date: 12/19/19 Additional smoking assessment comments: Has stopped using E-cigs 12/19/2019.Quit cigarettes 2015 to e-cigs. Alcohol intake: current Drinks per week: 2 Substance use: never Additional living arrangements comments: She lives with her of 30 years. She has 1 son and 1 stepson. She reports that her son is healthy. 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 Gender identity (if verbalized by the patient): Female Spiritual care concerns: No Exam Narrative: Exam Narrative: GENERAL: Uncomfortable-appearing, well-nourished, and in no acute distress. HEAD: Normocephalic, atraumatic. ENT: Mucous membranes moist. CHEST: Clear to auscultation. No respiratory distress. HEART: Regular rate and rhythm. Normal peripheral pulses. ABDOMEN: Soft, tender palpation right upper quadrant with guarding, nondistended. EXTREMITIES: Normal range of motion. No edema. SKIN: Warm, dry, no rash. NEURO: Alert and oriented x3. PSYCH: Normal mood and affect. Course Course Emergency Course: Discussed case with Dr. Leonardo with general surgery. Patient may follow-up outpatient. We will give her [place] and Zofran as needed, adhere to low-fat diet. Vital Signs Vital signs: Vital Signs Temperature 97.8 F 10/28/20 03:26 Pulse Rate 78 10/28/20 03:26 Respiratory Rate 16 10/28/20 03:26 Blood Pressure 116/74 10/28/20 03:26 Pulse Oximetry 98 10/28/20 03:26 Temperature 97.8 F 10/28/20 03:26 Pulse Rate 78 10/28/20 03:26 Respiratory Rate 16 10/28/20 03:26 Blood Pressure 116/74 10/28/20 03:26 Pulse Oximetry 98 10/28/20 03:26 MDM - Abdominal Pain Lab Data Result diagrams: 10/28/20 00:28 10/28/20 00:28 Labs: Lab Results 10/28/20 10/28/20 10/28/20 Range
[2020-10-28 03:26] VITALS: BP 116/74; PULSE 78; RESP 16; TEMP 36.6; O2SAT 98
== END 2020-10-28 03:50 | disposition home or self-care (01) ==
PROVIDERS: Emergency Provider Emergency Medicine; PCP Family Medicine Sports Medicine
DX: K80.50 Calculus of bile duct without cholangitis or cholecystitis without obstruction (principal); Z87.891 Personal history of nicotine dependence
CPT/HCPCS: 36415; 74177; 80053; 81003; 81025; 83690; 85025; 96361; 96374; 99284; J2270; J7030; Q9967